=== PATIENT | male | born 1940 | race Caucasian/White ===

== ENCOUNTER 2017-11-19 18:20 | Inpatient (IN) | payer OTHER ==
[~2017-11-19] VITALS: Ht 177.8 cm; Wt 78.9 kg
[~2017-11-19 18:20] MED LIST: ASPI81TA25 PO; CEPH500C2 PO; CMD/25 PO; GLUC500C4 PO; LISI10TA PO; MELO15TA3 PO; METOPROLOL PO; MULTI VITAMINS PO; OXYC-292 PO; OXYC1TAB3 PO; SIMV80TA2 PO; TERAZOSIN PO; WARF-246 PO
[2017-11-19 21:45] VITALS: BP 119/63; PULSE 73; TEMP 37; O2SAT 99; Ht 177.8 cm; Wt 78.9 kg
[2017-11-19] MEDS ORDERED: PNEUMOCOCCAL ADMINISTRATION CHARGE ONE (22:00)
[2017-11-19] MEDS ORDERED: PNEUMOCOCCAL POLYSACCHARIDES 25 MCG/0.5 ML VIAL/SYR IM. ONE (22:00)
[2017-11-19] MEDS ORDERED: FURO-85 PO (22:12)
[2017-11-19] MEDS ORDERED: TAMS0.4C38 PO (22:13)
[2017-11-19] MEDS ORDERED: ASPI81TA28 PO (22:14)
[2017-11-19] MEDS ORDERED: POTA10CA28 PO (22:14)
[2017-11-19] MEDS ORDERED: MULT-513 PO (22:15)
[2017-11-19] MEDS ORDERED: LISI-729 PO (22:16)
[2017-11-19] MEDS ORDERED: METO50TA16 PO (22:18)
[2017-11-19] MEDS ORDERED: WARF2.5T8 PO (22:20)
[2017-11-19] MEDS ORDERED: WARF5TAB7 PO (22:20)
[2017-11-19] MEDS ORDERED: MONT1TAB5 PO (22:21)
[2017-11-19] MEDS ORDERED: CARB1TAB29 PO (22:23)
[2017-11-19] MEDS ORDERED: ONDANSETRON INJ 2 MG/ML 2 ML VIAL IV PRN (22:45)
[2017-11-19] MEDS ORDERED: HydrALAZINE HCL 20 MG/ML VIAL IV. PRN (22:45)
[2017-11-19 22:54] VITALS: BP 125/58; PULSE 73; TEMP 37.6; O2SAT 96
[2017-11-19] MEDS ORDERED: PIPERACILL/TAZOBAC IV 3.375 GM in DEXTROSE 5% 100ML 100 ML IV SCH (23:00)
[2017-11-19] MEDS ORDERED: PHYTONADIONE INJ 10 MG in SODIUM CHLORIDE 0.9% 50ML 50 ML IV STA (23:10)
[2017-11-19] MEDS ORDERED: METOPROLOL TARTRATE 25 MG TAB PO ONE (23:15)
[2017-11-19] MEDS ORDERED: FUROSEMIDE 20 MG TAB PO ONE (23:15)
[2017-11-19 23:24] VITALS: BP 115/75; PULSE 75
[2017-11-19] MEDS: SODIUM CHLORIDE 0.9% 1000ML 1,000 ML IV SCH (23:27)
[2017-11-19] MEDS: MoRPHine SULFATE 4 MG/ML 1 ML CARP\\VIAL IV PRN (23:27)
[2017-11-19 23:38] LABS: BASO % 0.1 %; BASO ABS # 0.01 K/uL (0-0.2); EOS % 0.5 %; EOS ABS # 0.07 K/uL (0-0.5); HEMATOCRIT 29.6 % (42-52); HEMOGLOBIN 9.9 g/dL (14.0-18.0); IG# 0.05 K/uL (0.00-0.02); LYMPH % 6.2 %; LYMPH ABS # 0.83 K/uL (1.2-3.4); MEAN CELL VOLUME 95.2 fL (80-100); MEAN CORPUSCULAR HEMOGLOBIN 31.8 pg (25-34); MEAN CORPUSCULAR HGB CONC 33.4 g/dl (32-36); MEAN PLATELET VOLUME 9.5 fL (7.4-10.4); MONO % 12.3 %; MONO ABS # 1.66 K/uL (0.11-0.59); NEUT % 80.5 %; NEUT ABS # 10.83 K/uL (1.4-6.5); PLATELET COUNT 177 K/uL (130-400); RED CELL DISTRIBUTION WIDTH CV 13.3 % (11.5-14.5); RED CELL DISTRIBUTION WIDTH SD 46.3 fL (36.4-46.3); WHITE BLOOD COUNT 13.45 K/uL (4.8-10.8)
[2017-11-19 23:45] VITALS: BP 115/55; PULSE 76; TEMP 37.5
[2017-11-19 23:46] LABS: INR 3.4 (0.9-1.1)
--- NOTE | 2017-11-19 23:59 | History and Physical ---
History & Physical Date & Time of Service: Nov 19, 2017 at 23:35 Chief Complaint: Uti, Colovessicle Fistula Primary Care Physician: No Doctor, Assigned History of Present Illness Source: patient, hospital records Patient is a 77 year old male with a past medical history of prostate cancer, hypertension, hyperlipidemia, Afib on Coumadin, and chronic pain that presents with as a transfer from [facility] with concerns of Colovesicular fistula. The patient was having dysuria for the past 2 days and was started on Cipro by his PCP yesterday for concerns over UTI. The patient then noticed dark brown flakes in his urine and went to the Emergency department for evaluation. Once in the ED the patient had an abdominal CT showing an irregular collection concerning for abscess between the sigmoid colon and bladder concerning for an abscess. This finding is actually similar to the finding on CT on 11/18/2016 although is slightly larger now. Also intraluminal gas and wall thickening associated with the urinary bladder was seen. The patient was started on IV levaquin and transferred to [facility]. The patient on admission is stable and not complaining of urinary or abdominal pain at this time, and denies any fevers, chills, chest pain, or shortness of breath. 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 Status: Chronic (6) Repair of tricuspid valve Status: Chronic Family History Noncontributory Social History Smoking Status: Former Smoker Smokeless Tobacco Use: No Alcohol Use: none Immunizations History of Influenza Vaccine: Yes Influenza Vaccine Date: Oct 04, 2012 History of Tetanus Vaccine?: Yes History of Pneumococcal: Yes Pneumococcal Date: Feb 03, 2013 History of Hepatitis B Vaccine: No Multi-Drug Resistant Organisms History of MDRO: No Allergies Coded Allergies: No Known Allergies (Unverified , 02/01/13) Home Medications Scheduled Aspirin (Aspir-Low), 1 TAB PO QAM Aspirin (Aspirin Ec), 81 MG PO DAILY Carbonyl Iron (Feosol), 65 MG PO HS Cephalexin Monohydrate (Keflex), 500 MG PO TID Furosemide (Lasix), 20 MG PO BID Glucosamine Sulfate (Glucosamine), 2 CAPSULES PO BID Lisinopril (Prinivil), 10 MG PO QAM Lisinopril (Zestril), 5 MG PO DAILY Meloxicam (Mobic), 15 MG PO QPM Metoprolol Tartrate (Lopressor) (Lopressor), 75 MG PO BID Montelukast Sodium (Montelukast Sodium), 10 MG PO DAILY Multivitamins/Minerals (Mvi With Minerals), 1 TAB PO DAILY Oxycodone Hcl (Oxycodone Hcl Er), 20 MG PO Q12 Potassium Chloride (Micro-K Ext Rel), 10 MEQ PO BID Simvastatin (Zocor), 80 MG PO QPM Tamsulosin Hcl (Flomax), 1 CAP PO DAILY Warfarin Sod (Coumadin), 2.5 MG PO 5XWK Warfarin Sod (Jantoven), 5 MG PO DAILY Warfarin Sod (Jantoven), 2.5 MG PO DAILY Warfarin Sodium (Warfarin Sodium), 5 MG PO 2XWK [Metoprolol], 75 MG PO BID [Multi Vitamins], 1 TAB PO QAM [Terazosin], 8 MG PO HS Scheduled PRN Oxycodone Ir (Roxicodone Ir), 5-10 MG PO Q4H PRN Review of Systems Constitutional: No fever, No chills, No fatigue Respiratory: No cough, No sputum, No wheezing, No shortness of breath Cardiovascular: No chest pain, No palpitations Abdomen: No pain, No nausea, No vomiting, No GI bleeding Genitourinary - Male: + dysuria, + problem reported (fecal contents in urine), No hematuria Neurologic: No numbness/tingling Physical Exam Vital Signs Date Time Temp Pulse Resp B/P (MAP) Pulse Ox O2 Delivery O2 Flow Rate FiO2 11/19/17 21:45 37.0 73 18 119/63 99 Room Air General Appearance: WD/WN, no apparent distress Head: normocephalic, atraumatic Eyes: normal inspection, sclerae normal Neck: supple, no carotid bruits Respiratory/Chest: chest non-tender, lungs clear, normal breath sounds Cardiovascular: no edema, no gallop, + irregularly irregular Abdomen/GI: normal bowel sounds, non tender, soft Back: normal inspection, no CVA tenderness Neurologic/Psych: alert, normal mood/affect, oriented x 3 Diagnostics Laboratory Results Results Past 24 Hours Test 11/19/17 22:37 11/19/17 23:16 Range/Units Microbiology Results 11/19/17 Blood Culture, Received Pending 11/19/17 Blood Culture, Received Pending 11/19/17 Urine Culture, Ordered Pending Impression Assessment and Plan Patient is a 77 year old male with a past medical history of prostate cancer, hypertension, hyperlipidemia, Afib on Coumadin, and chronic pain that presents with as a transfer from [facility] with concerns of Colovesicular fistula 1) Colovesicular Fistula - Admit to Med/Surg - NPO - 100mls/hr IV NS - Zosyn + Levaquin - Blood Cultures, Urine Culture, UA --> Patient did receive Levaquin at [place] - Urology Consult 2) Atrial Fibrillation - EKG ordered - Will get night dose of 75mg Metoprolol prior to being NPO - Heart rate stable at this time and will hold morning meds --> If not requiring surgery will resume PO Metoprolol or may require transfer to Telemetry for IV Lopressor - Currently supratherapeutic --> INR of 3.9 at [place] --> Repeat INR - 10mg Phytonadione --> Repeat INR in AM - Hold Coumadin at this time 3) Hypertension - Hold home Lisinopril - Hydralazine 10mg IV q4h PRN for SBP > 160 4) HLD - Hold home Zocor 5) CHF - Will get evening dose of Lasix then NPO after midnight so will hold Lasix + daily KlorCon 6) BPH - Hold home Flomax 7) Chronic Pain - Patient on significant home dose of narcotics --> Roxicodone 10/325 mg q4h - Morphine 4mg IV q4h PRN for pain 8) CAD - Holding home Aspirin 9) DVT - Supratherapeutic INR - Hold home Coumadin - In not going for surgery --> DO NOT USE LOVENOX --> Previous negative reaction --> IV Heparin 10) Code Status - Full Resuscitation Attending addendum: I have physically seen this patient, have supervised the medical residents activities, and agree with the H&P unless as otherwise noted. Assessment and Plan: Colovesical fistula-- Admitted to medical surgical floor Nothing by mouth except essential medications Normal saline at 100 mils per hour Zosyn 3.375 mg IV every 8 hours Levofloxacin 500 mg IV every 24 hours Follow blood cultures and urine culture Consult urology CAD/hypertension/atrial fibrillation/CHF-- Hold aspirin, Lasix, Klor-Con and lisinopril Hydralazine 10 mg IV every 4 hours when necessary systolic blood pressure greater than 160 Vitamin K 10 mg IV to reverse INR for possible procedure Hold Coumadin Dose metoprolol 75 mg by mouth tonight, and either resume in the a.m. or transfer to telemetry for IV Lopressor DVT on chronic Coumadin-- Hold Coumadin as noted above and reverse with vitamin K Level of Care Med/Surg Advanced Directives Existing Advance Directive: No Existing Living Will: No Existing Power of Technical Specialist Cytogenetics: Yes Resuscitation Status FULL RESUSCITATION VTE Prophylaxis VTE Risk Assessment Done? Y/N: Yes Risk Level: Moderate Given or contraindicated: Warfarin (Coumadin), SCD's Social Service Consult None Apply Resident Tracking Resident Involvement: Resident Care Provided Care Provided: Adult Hospital Medicine
[2017-11-20] VITALS (9 sets, daily range): BP systolic 107–144; BP diastolic 54–71; PULSE 71–88; TEMP 37–38; O2SAT 92–97
[2017-11-20 00:02] LABS: ALBUMIN 2.9 gm/dl (3.4-5.0); CALCIUM 8.2 mg/dl (8.5-10.1); CREATININE 1.42 mg/dl (0.60-1.40); POTASSIUM 4.3 mmol/L (3.5-5.1)
[2017-11-20 00:05] LABS: TOTAL PROTEIN 6.2 gm/dl (6.4-8.2)
[2017-11-20] MEDS ORDERED: PIPERACILL/TAZOBAC CONSULT ACTIVE PRN (00:15)
[2017-11-20] MEDS: PIPERACILL/TAZOBAC IV 3.375 GM in DEXTROSE 5% 100ML IV SCH ×3 (03:39→20:14)
[2017-11-20 08:35] LABS: BASO % 0.2 %; BASO ABS # 0.02 K/uL (0-0.2); EOS % 0.4 %; EOS ABS # 0.04 K/uL (0-0.5); HEMATOCRIT 31.8 % (42-52); HEMOGLOBIN 10.8 g/dL (14.0-18.0); IG# 0.03 K/uL (0.00-0.02); LYMPH % 5.6 %; LYMPH ABS # 0.62 K/uL (1.2-3.4); MEAN CELL VOLUME 95.5 fL (80-100); MEAN CORPUSCULAR HEMOGLOBIN 32.4 pg (25-34); MEAN PLATELET VOLUME 9.6 fL (7.4-10.4); MONO % 8.3 %; MONO ABS # 0.93 K/uL (0.11-0.59); NEUT % 85.2 %; PLATELET COUNT 176 K/uL (130-400); RED CELL DISTRIBUTION WIDTH CV 13.4 % (11.5-14.5); RED CELL DISTRIBUTION WIDTH SD 46.6 fL (36.4-46.3); WHITE BLOOD COUNT 11.14 K/uL (4.8-10.8)
[2017-11-20 08:41] LABS: INR 1.6 (0.9-1.1)
[2017-11-20 09:04] LABS: CALCIUM 8.7 mg/dl (8.5-10.1); CREATININE 1.51 mg/dl (0.60-1.40)
--- NOTE | 2017-11-20 09:20 | Clinical Documentation Query ---
QUERY 1 OF [address] GEORGE, In your clinical opinion is this patient being managed for: ( ) Chronic diastolic CHF ( ) Chronic systolic CHF ( ) Chronic systolic and diastolic CHF (x ) Not Agree: no mention of HF in any past records. Clinical Dx, not based on meds or EF ( ) Other explanation of clinical findings (Please Explain) ( ) Unable to determine (Please Define) ( ) Need to Discuss The medical record reflects the following clinical findings, treatment, and risk factors. Clinical Indicators: 77 yo male presenting with Colovesical fistula. Noted to have a history of CHF. Review of historical EHR revealed documentation in a cardiology consult January 2013 stating Nov 2012 showed EF 55%. Treatment: chronic medications include lasix, lisinopril, metoprolol Risk Factors: age, HTN, A fib QUERY 2 OF 3 In your clinical opinion is this patient being managed for: ( x ) Urinary tract infection ( ) Not Agree ( ) Other explanation of clinical findings (Please Explain) ( ) Unable to determine (Please Define) ( ) Need to Discuss The medical record reflects the following clinical findings, treatment, and risk factors. Clinical Indicators: WBC 13.45, UA LE large/WBC >30/bacteria +2 Treatment:IV levaquin, IV zosyn, IV fluids, UA cx pending, urology consult Risk Factors: colovesicular fistula QUERY 3 OF 3 In your clinical opinion is this patient being managed for: ( ) Acute kidney failure ( x ) Not Agree ( ) Other explanation of clinical findings (Please Explain) ( ) Unable to determine (Please Define) ( ) Need to Discuss The medical record reflects the following clinical findings, treatment, and risk factors. Clinical Indicators: Review of historical Cr showed baseline value of 1.2. Presented with Cr of 1.42 which has trended up to Cr 1.51. Treatment: IV fluids, monitor PRP's Risk Factors: age, A fib, CHD, A fib, colovesicular fistula Please clarify and document your clinical opinion in the progress notes and discharge summary. Terms such as "probable", "suspected", "likely", "questionable", "possible", or "still to be ruled out" are acceptable. IF IN AGREEMENT, YOU MUST DOCUMENT ABOVE DIAGNOSTIC STATEMENT IN DAILY PROGRESS NOTES AND DISCHARGE SUMMARY. This document is not part of the patient's record. Thank You, Gail Gonzalez, RN [phone]
--- NOTE | 2017-11-20 09:22 | Clinical Documentation Query ---
QUERY 1 OF [address] CONNOR, In your clinical opinion is this patient being managed for: (x ) Chronic diastolic CHF ( ) Chronic systolic CHF ( ) Chronic systolic and diastolic CHF ( ) Not Agree ( ) Other explanation of clinical findings (Please Explain) ( ) Unable to determine (Please Define) ( ) Need to Discuss The medical record reflects the following clinical findings, treatment, and risk factors. Clinical Indicators: 77 yo male presenting with Colovesical fistula. Noted to have a history of CHF. Review of historical EHR revealed documentation in a cardiology consult January 2013 stating Nov 2012 showed EF 55%. Treatment: chronic medications include lasix, lisinopril, metoprolol Risk Factors: age, HTN, A fib QUERY 2 OF 3 In your clinical opinion is this patient being managed for: ( x ) Urinary tract infection ( ) Not Agree ( ) Other explanation of clinical findings (Please Explain) ( ) Unable to determine (Please Define) ( ) Need to Discuss The medical record reflects the following clinical findings, treatment, and risk factors. Clinical Indicators: WBC 13.45, UA LE large/WBC >30/bacteria +2 Treatment:IV levaquin, IV zosyn, IV fluids, UA cx pending, urology consult Risk Factors: colovesicular fistula QUERY 3 OF 3 In your clinical opinion is this patient being managed for: (x ) Acute kidney failure ( ) Not Agree ( ) Other explanation of clinical findings (Please Explain) ( ) Unable to determine (Please Define) ( ) Need to Discuss The medical record reflects the following clinical findings, treatment, and risk factors. Clinical Indicators: Review of historical Cr showed baseline value of 1.2. Presented with Cr of 1.42 which has trended up to Cr 1.51. Treatment: IV fluids, monitor PRP's Risk Factors: age, A fib, CHD, A fib, colovesicular fistula Please clarify and document your clinical opinion in the progress notes and discharge summary. Terms such as "probable", "suspected", "likely", "questionable", "possible", or "still to be ruled out" are acceptable. IF IN AGREEMENT, YOU MUST DOCUMENT ABOVE DIAGNOSTIC STATEMENT IN DAILY PROGRESS NOTES AND DISCHARGE SUMMARY. This document is not part of the patient's record. Thank You, Gail Gonzalez RN [phone]
[2017-11-20] MEDS: SODIUM CHLORIDE 0.9% 1000ML 1,000 ML IV SCH ×2 (09:39→19:12)
[2017-11-20] MEDS: MoRPHine SULFATE 4 MG/ML 1 ML CARP\\VIAL IV PRN (09:39)
[2017-11-20] MEDS: HEPARIN 25,000 UNIT/500ML D5W 500 ML IV PRN ×4 (11:12→23:05)
--- NOTE | 2017-11-20 11:34 | Urology Consultation ---
History General Date of Service: Nov 20, 2017. Chief Complaint: colovestical fistula Primary Care Physician: Ayden Mcmullen M.D. Pt seen a urologist before?: Yes (Dr. Prieto) If yes, why?: prostate cancer History of Present Illness 77 yo transfer from [facility] for colovesical fistula. consulted to assist in this pt's care. The pt has a hx of prostate cancer for which he has seen Dr. Prieto last year. No current tx. Pa 6+6. Pt reports developing stool and air in the urine several days ago. Denies abdominal pain. CT scan from [facility] showing ? abscess vs inflammed sigmoid with colovesical fistula. Urine is clear, yellow in urinal this morning. Imaging Imaging: CT ([facility] ) Laboratory Last 24 Hours Test 11/19/17 23:16 11/19/17 23:30 11/20/17 08:23 11/20/17 10:23 White Blood Count 13.45 K/uL 11.14 K/uL Red Blood Count 3.11 M/uL 3.33 M/uL Hemoglobin 9.9 g/dL 10.8 g/dL Hematocrit 29.6 % 31.8 % Mean Corpuscular Volume 95.2 fL 95.5 fL Mean Corpuscular Hemoglobin 31.8 pg 32.4 pg Mean Corpuscular Hemoglobin Concent 33.4 g/dl 34.0 g/dl Platelet Count 177 K/uL 176 K/uL Mean Platelet Volume 9.5 fL 9.6 fL Neutrophils (%) (Auto) 80.5 % 85.2 % Lymphocytes (%) (Auto) 6.2 % 5.6 % Monocytes (%) (Auto) 12.3 % 8.3 % Eosinophils (%) (Auto) 0.5 % 0.4 % Basophils (%) (Auto) 0.1 % 0.2 % Neutrophils # (Auto) 10.83 K/uL 9.50 K/uL Lymphocytes # (Auto) 0.83 K/uL 0.62 K/uL Monocytes # (Auto) 1.66 K/uL 0.93 K/uL Eosinophils # (Auto) 0.07 K/uL 0.04 K/uL Basophils # (Auto) 0.01 K/uL 0.02 K/uL RDW Standard Deviation 46.3 fL 46.6 fL RDW Coefficient of Variation 13.3 % 13.4 % Immature Granulocyte % (Auto) 0.4 % 0.3 % Immature Granulocyte # (Auto) 0.05 K/uL 0.03 K/uL Prothrombin Time 35.0 SECONDS 16.3 SECONDS Prothromb Time International Ratio 3.4 1.6 Sodium Level 136 mmol/L 139 mmol/L Potassium Level 4.3 mmol/L 4.0 mmol/L Chloride Level 106 mmol/L 107 mmol/L Carbon Dioxide Level 25 mmol/L 23 mmol/L Anion Gap 5.0 mmol/L 9.0 mmol/L Blood Urea Nitrogen 27 mg/dl 25 mg/dl Creatinine 1.42 mg/dl 1.51 mg/dl Est Creatinine Clear Calc Drug Dose 43.6 ml/min 41.0 ml/min Estimated GFR () 54.1 50.2 Estimated GFR (Non- 46.6 43.3 BUN/Creatinine Ratio 19.3 16.4 Random Glucose 120 mg/dl 115 mg/dl Calcium Level 8.2 mg/dl 8.7 mg/dl Total Bilirubin 0.9 mg/dl Aspartate Amino Transf (AST/SGOT) 15 U/L Alanine Aminotransferase (ALT/SGPT) 24 U/L Alkaline Phosphatase 97 U/L Total Protein 6.2 gm/dl Albumin 2.9 gm/dl Globulin 3.3 gm/dl Albumin/Globulin Ratio 0.9 Urine Color YELLOW Urine Appearance TURBID Urine pH 6.0 Urine Specific [place] 1.025 Urine Protein 2+ Urine Glucose (UA) NEG Urine Ketones NEG Urine Occult Blood 3+ Urine Nitrite NEG Urine Bilirubin NEG Urine Urobilinogen NEG Urine Leukocyte Esterase LARGE Urine RBC 5-10 /hpf Urine WBC >30 /hpf Urine Epithelial Cells 0-5 /lpf Urine Bacteria 2+ Activated Partial Thromboplast Time 40.0 SECONDS Partial Thromboplastin Ratio 1.5 Past History A Fib, diverticulosis, hypertension Past Surgical History: pacemaker, other (mitral valve prosthesis implantation, repair of tricuspid valve) Family History non-contributory Social History Hx Tobacco Use In Past Year?: No (NO SMOKING IN YEARS) Smoking: other (former smoker) Immunizations History of Influenza Vaccine: Yes Influenza Vaccine Date: Oct 04, 2012 History of Tetanus Vaccine?: Yes History of Pneumococcal: Yes Pneumococcal Date: Feb 03, 2013 History of Hepatitis B Vaccine: No Allergies Coded Allergies: No Known Allergies (Unverified , 02/01/13) Medications Home Medications: Home Meds and Scripts Medications Dose Route/Sig Max Daily Dose Days Date Category Dose Instructions Feosol (Carbonyl Iron) 45 Mg Tab 65 Mg PO HS 11/19/17 Reported Montelukast Sodium 10 Mg Tab 10 Mg PO DAILY 30 11/19/17 Reported Jantoven (Warfarin Sodium) 2.5 Mg Tab 2.5 Mg PO DAILY 11/19/17 Reported Jantoven (Warfarin Sodium) 5 Mg Tab 5 Mg PO DAILY 11/19/17 Reported Lopressor (Metoprolol Tartrate) 50 Mg Tab 75 Mg PO BID 11/19/17 Reported Zestril (Lisinopril) 5 Mg Tab 5 Mg PO DAILY 11/19/17 Reported Mvi With Minerals (Multivitamins/Minerals) Tab 1 Tab PO DAILY 11/19/17 Reported Aspirin Ec (Aspirin) 81 Mg Tab 81 Mg PO DAILY 11/19/17 Reported Micro-K Ext Rel (Potassium Chloride) 10 Meq Capcr 10 Meq PO BID 11/19/17 Reported Flomax (Tamsulosin Hcl) 0.4 Mg Cap 1 Cap PO DAILY 30 11/19/17 Reported Lasix (Furosemide) 20 Mg Tab 20 Mg PO BID 11/19/17 Reported Keflex (Cephalexin Monohydrate) 500 Mg Cap 500 Mg PO TID 02/05/13 Rx Roxicodone Ir (Oxycodone HCl) 5 Mg Tab 5-10 Mg PO Q4H PRN 02/05/13 Rx Oxycodone Hcl Er (Oxycodone Hcl) 10 Mg Tab 20 Mg PO Q12 02/05/13 Rx Warfarin Sodium 5 Mg Tab 5 Mg PO 2XWK 01/06/13 Reported ON MONDAYS AND FRIDAYS Coumadin (Warfarin Sod) 2.5 Mg Tab 2.5 Mg PO 5XWK 01/06/13 Reported EVERY DAY EXCEPT THURSDAY AND THURSDAY [Multi Vitamins] 1 Tab PO QAM 01/06/13 Reported [Terazosin] 8 Mg PO HS 01/06/13 Reported Zocor (Simvastatin) 80 Mg Tab 80 Mg PO QPM 01/06/13 Reported Mobic (Meloxicam) 15 Mg Tab 15 Mg PO QPM 01/06/13 Reported [Metoprolol] 75 Mg PO BID 01/06/13 Reported Prinivil (Lisinopril) 10 Mg Tab 10 Mg PO QAM 01/06/13 Reported Glucosamine (Glucosamine Sulfate) 500 Mg Cap 2 Capsules PO BID 01/06/13 Reported Aspir-Low (Aspirin) 81 Mg Tab 1 Tab PO QAM 01/06/13 Reported Inpatient Medications: Current Inpatient Medications Medications (Trade) Dose Ordered Sig/Quan Route Start Time Stop Time Status Last Admin Dose Admin Levofloxacin 750 mg/Prmx 150 ml @ 100 mls/hr Q24H IV 11/20/17 14:00 11/28/17 15:29 Sodium Chloride 1,000 ml @ 100 mls/hr Q10H IV 11/19/17 22:45 12/19/17 22:44 11/20/17 09:39 100 MLS/HR Ondansetron HCl (Zofran Inj) 4 mg Q6H PRN IV 11/19/17 22:45 12/19/17 22:44 Morphine Sulfate (MoRPHine SULFATE INJ) 4 mg Q4H PRN IV 11/19/17 22:45 12/03/17 22:44 11/20/17 09:39 4 MG Hydralazine HCl (HydrALAZINE INJ) 10 mg Q4H PRN IV. 11/19/17 22:45 12/19/17 22:44 Piperacillin Sod/ Tazobactam Sod 3.375 gm/Dextrose 115 ml @ 28.75 mls/ hr Q8H IV 11/20/17 04:00 11/30/17 03:59 11/20/17 03:39 28.75 MLS/HR Piperacillin Sod/ Tazobactam Sod (Consult) 1 ea UD PRN N/A 11/20/17 00:15 12/20/17 00:14 Warfarin Sodium (Coumadin Tab) 2.5 mg SuTuWeThSa@1600 PO 11/21/17 16:00 12/21/17 15:59 Warfarin Sodium (Coumadin Tab) 5 mg MoFr@1600 PO 11/20/17 16:00 12/20/17 15:59 Heparin Sodium/ Dextrose 500 ml @ 27 mls/hr [id number] PRN IV 11/20/17 10:30 12/20/17 10:29 11/20/17 11:12 27 MLS/HR Review of Systems Review of Systems Constitutional: No fever, No chills Eyes: No double vision Neurological: No dizzy Endocrine: No excessive thirst Gastrointestinal: No abdominal pain, No nausea, No vomiting Cardiovascular: No chest pain Respiratory: No shortness of breath Male : No painful urination, No blood in urine Physical Exam Vital Signs: Vital Signs Past 12 Hours Date Time Temp Pulse Resp B/P (MAP) Pulse Ox O2 Delivery O2 Flow Rate FiO2 11/20/17 07:40 37.7 72 16 144/71 (95) 95 Room Air 11/20/17 07:20 Room Air 11/20/17 01:50 37.0 71 16 128/61 (83) 97 Room Air 11/20/17 01:20 37.4 73 16 113/61 (78) 94 Room Air 11/20/17 01:05 37.2 73 16 107/58 (74) 94 Room Air 11/20/17 00:49 37.2 72 18 107/54 (71) 93 Room Air 11/19/17 23:45 37.5 76 115/55 (75) 11/19/17 23:24 75 115/75 (88) 11/19/17 23:24 Room Air Physical Exam: General Appearance: no apparent distress Eyes: bilateral eyes normal inspection ENT: hearing grossly normal Neck: no JVD Respiratory/Chest: no respiratory distress, no accessory muscle use Cardiovascular: no JVD Extremities: normal inspection Neurologic/Psychiatric: alert, normal mood/affect, oriented x 3 Skin: normal color Assessment & Plan Assessment & Plan A/P: Colovesical fistula AFVSS. CT reviewed with Dr. Metzger this morning. Will consult general surgery for further evaluation. Will likely need surgery in the future when the area is less inflammed. Role for small. Would be available for repair of bladder during surgery if needed. Will check a PSA given his hx of prostate cancer. Will arrange for outpatient f/ u with Dr. Prieto as well. Thanks for the consult. Will continue to follow along with primary service. The pt was seen and assessed with Dr. Metzger this morning.
[2017-11-20] MEDS ORDERED: NURSING VERBAL MED ORDER ONE (12:00)
--- NOTE | 2017-11-20 13:21 | Surgery Consultation ---
Consultation Date of Consultation: Nov 20, 2017. Attending Physician: Antonia Eastman M.D. Past Medical/Surgical History Patient is a 77 year old male with a past medical history of prostate cancer, hypertension, hyperlipidemia, Afib on Coumadin, and chronic pain that presents with as a transfer from [facility] with concerns of Colovesicular fistula. The patient was having dysuria for the past 2 days and was started on Cipro by his PCP yesterday for concerns over UTI. The patient then noticed dark brown flakes in his urine and went to the Emergency department for evaluation. Once in the ED the patient had an abdominal CT showing an irregular collection concerning for abscess between the sigmoid colon and bladder concerning for an abscess. This finding is actually similar to the finding on CT on 11/18/2016 although is slightly larger now. Also intraluminal gas and wall thickening associated with the urinary bladder was seen. The patient was started on IV levaquin and transferred to [facility]. The patient on admission is stable and not complaining of urinary or abdominal pain at this time, and denies any fevers, chills, chest pain, or shortness of breath. I reviewed pt's H/P with pt and his , pt denies abdominal pain, no fever, no diarrhea, pt had sigmoid colon diverticulitis with large abscess last year , pt was treated with IV antibiotic, the abscess was gone after 1 week treatment, Social History Smoking Status: Former Smoker Smokeless Tobacco Use: No Alcohol Use: occasionally Drug Use: none Allergies Coded Allergies: No Known Allergies (Unverified , 02/01/13) Home Medications Scheduled Aspirin (Aspir-Low), 1 TAB PO QAM Aspirin (Aspirin Ec), 81 MG PO DAILY Carbonyl Iron (Feosol), 65 MG PO HS Cephalexin Monohydrate (Keflex), 500 MG PO TID Furosemide (Lasix), 20 MG PO BID Glucosamine Sulfate (Glucosamine), 2 CAPSULES PO BID Lisinopril (Prinivil), 10 MG PO QAM Lisinopril (Zestril), 5 MG PO DAILY Meloxicam (Mobic), 15 MG PO QPM Metoprolol Tartrate (Lopressor) (Lopressor), 75 MG PO BID Montelukast Sodium (Montelukast Sodium), 10 MG PO DAILY Multivitamins/Minerals (Mvi With Minerals), 1 TAB PO DAILY Oxycodone Hcl (Oxycodone Hcl Er), 20 MG PO Q12 Potassium Chloride (Micro-K Ext Rel), 10 MEQ PO BID Simvastatin (Zocor), 80 MG PO QPM Tamsulosin Hcl (Flomax), 1 CAP PO DAILY Warfarin Sod (Coumadin), 2.5 MG PO 5XWK Warfarin Sod (Jantoven), 5 MG PO DAILY Warfarin Sod (Jantoven), 2.5 MG PO DAILY Warfarin Sodium (Warfarin Sodium), 5 MG PO 2XWK [Metoprolol], 75 MG PO BID [Multi Vitamins], 1 TAB PO QAM [Terazosin], 8 MG PO HS Scheduled PRN Oxycodone Ir (Roxicodone Ir), 5-10 MG PO Q4H PRN Current Inpatient Medications Current Inpatient Medications Medications (Trade) Dose Ordered Sig/Quan Route Start Time Stop Time Status Last Admin Dose Admin Levofloxacin 750 mg/Prmx 150 ml @ 100 mls/hr Q24H IV 11/20/17 14:00 11/28/17 15:29 Sodium Chloride 1,000 ml @ 100 mls/hr Q10H IV 11/19/17 22:45 12/19/17 22:44 11/20/17 09:39 100 MLS/HR Ondansetron HCl (Zofran Inj) 4 mg Q6H PRN IV 11/19/17 22:45 12/19/17 22:44 Morphine Sulfate (MoRPHine SULFATE INJ) 4 mg Q4H PRN IV 11/19/17 22:45 12/03/17 22:44 11/20/17 09:39 4 MG Hydralazine HCl (HydrALAZINE INJ) 10 mg Q4H PRN IV. 11/19/17 22:45 12/19/17 22:44 Piperacillin Sod/ Tazobactam Sod 3.375 gm/Dextrose 115 ml @ 28.75 mls/ hr Q8H IV 11/20/17 04:00 11/30/17 03:59 11/20/17 12:51 28.75 MLS/HR Piperacillin Sod/ Tazobactam Sod (Consult) 1 ea UD PRN N/A 11/20/17 00:15 12/20/17 00:14 Warfarin Sodium (Coumadin Tab) 2.5 mg SuTuWeThSa@1600 PO 11/21/17 16:00 12/21/17 15:59 Future Hold Warfarin Sodium (Coumadin Tab) 5 mg MoFr@1600 PO 11/20/17 16:00 12/20/17 15:59 Future Hold Heparin Sodium/ Dextrose 500 ml @ 27 mls/hr [id number] PRN IV 11/20/17 10:30 12/20/17 10:29 11/20/17 11:12 27 MLS/HR Review of Systems Constitutional: No fever, No chills, No sweats, No weight loss, No weakness, No fatigue, No problem reported Eyes: No worsening of vision, No eye pain, No redness, No discharge, No diplopia, No problem reported ENT: No hearing loss, No unusual epistaxis, No nasal symptoms, No sore throat, No tinnitus, No dental problems, No trouble swallowing, No problem reported Respiratory: No cough, No sputum, No wheezing, No shortness of breath, No dyspnea on exertion, No dyspnea at rest, No hemoptysis, No problem reported Cardiovascular: + problem reported (MVR x2 with mechnical valve, pacemaker, A- fib), No chest pain, No orthopnea, No PND, No edema, No claudication, No palpitations Abdomen: + pain Musculoskeletal: No joint pain, No muscle pain, No swelling, No calf pain, No problem reported Genitourinary - Male: + problem reported (prostate cancer last year ) Neurologic: No memory loss, No paralysis, No weakness, No numbness/tingling, No vertigo, No balance problems, No problem reported Psychiatric: No depression symptoms, No anhedonism, No anxiety, No insomnia, No substance abuse, No problem reported Endocrine: No fatigue, No excessive thirst, No excessive urination, No problem reported Allergic / Immunologic: No environmental allergies, No seasonal allergies, No pet sensitivities, No food allergies, No hives, No frequent infections, No poor healing, No prolonged convalescence, No problem reported Physical Exam Date Time Temp Pulse Resp B/P (MAP) Pulse Ox O2 Delivery O2 Flow Rate FiO2 11/20/17 07:40 37.7 72 16 144/71 (95) 95 Room Air 11/20/17 07:20 Room Air 11/20/17 01:50 37.0 71 16 128/61 (83) 97 Room Air 11/20/17 01:20 37.4 73 16 113/61 (78) 94 Room Air 11/20/17 01:05 37.2 73 16 107/58 (74) 94 Room Air 11/20/17 00:49 37.2 72 18 107/54 (71) 93 Room Air 11/19/17 23:45 37.5 76 115/55 (75) 11/19/17 23:24 75 115/75 (88) 11/19/17 23:24 Room Air 11/19/17 22:54 37.6 73 16 125/58 (80) 96 Room Air 11/19/17 21:45 37.0 73 18 119/63 99 Room Air 11/19/17 21:30 Room Air General Appearance: WD/WN, no apparent distress Head: normocephalic Eyes: normal inspection ENT: normal ENT inspection Neck: supple, no JVD Respiratory/Chest: chest non-tender, lungs clear, normal breath sounds, no respiratory distress Cardiovascular: regular rate, rhythm, no edema, no gallop, no JVD, no murmur Abdomen/GI: normal bowel sounds, non tender, soft, no organomegaly, no pulsatile mass, normal rectal exam Genitourinary - Male: normal male genitalia Extremities/Musculoskelatal: normal inspection, no calf tenderness, normal capillary refill Neurologic/Psych: no motor/sensory deficits, alert, normal mood/affect Skin: normal color, warm/dry, no rash Laboratory Results Last 24 Hours Test 11/19/17 23:16 11/19/17 23:30 11/20/17 08:23 11/20/17 10:23 White Blood Count 13.45 K/uL 11.14 K/uL Red Blood Count 3.11 M/uL 3.33 M/uL Hemoglobin 9.9 g/dL 10.8 g/dL Hematocrit 29.6 % 31.8 % Mean Corpuscular Volume 95.2 fL 95.5 fL Mean Corpuscular Hemoglobin 31.8 pg 32.4 pg Mean Corpuscular Hemoglobin Concent 33.4 g/dl 34.0 g/dl Platelet Count 177 K/uL 176 K/uL Mean Platelet Volume 9.5 fL 9.6 fL Neutrophils (%) (Auto) 80.5 % 85.2 % Lymphocytes (%) (Auto) 6.2 % 5.6 % Monocytes (%) (Auto) 12.3 % 8.3 % Eosinophils (%) (Auto) 0.5 % 0.4 % Basophils (%) (Auto) 0.1 % 0.2 % Neutrophils # (Auto) 10.83 K/uL 9.50 K/uL Lymphocytes # (Auto) 0.83 K/uL 0.62 K/uL Monocytes # (Auto) 1.66 K/uL 0.93 K/uL Eosinophils # (Auto) 0.07 K/uL 0.04 K/uL Basophils # (Auto) 0.01 K/uL 0.02 K/uL RDW Standard Deviation 46.3 fL 46.6 fL RDW Coefficient of Variation 13.3 % 13.4 % Immature Granulocyte % (Auto) 0.4 % 0.3 % Immature Granulocyte # (Auto) 0.05 K/uL 0.03 K/uL Prothrombin Time 35.0 SECONDS 16.3 SECONDS Prothromb Time International Ratio 3.4 1.6 Sodium Level 136 mmol/L 139 mmol/L Potassium Level 4.3 mmol/L 4.0 mmol/L Chloride Level 106 mmol/L 107 mmol/L Carbon Dioxide Level 25 mmol/L 23 mmol/L Anion Gap 5.0 mmol/L 9.0 mmol/L Blood Urea Nitrogen 27 mg/dl 25 mg/dl Creatinine 1.42 mg/dl 1.51 mg/dl Est Creatinine Clear Calc Drug Dose 43.6 ml/min 41.0 ml/min Estimated GFR () 54.1 50.2 Estimated GFR (Non- 46.6 43.3 BUN/Creatinine Ratio 19.3 16.4 Random Glucose 120 mg/dl 115 mg/dl Calcium Level 8.2 mg/dl 8.7 mg/dl Total Bilirubin 0.9 mg/dl Aspartate Amino Transf (AST/SGOT) 15 U/L Alanine Aminotransferase (ALT/SGPT) 24 U/L Alkaline Phosphatase 97 U/L Total Protein 6.2 gm/dl Albumin 2.9 gm/dl Globulin 3.3 gm/dl Albumin/Globulin Ratio 0.9 Urine Color YELLOW Urine Appearance TURBID Urine pH 6.0 Urine Specific [place] 1.025 Urine Protein 2+ Urine Glucose (UA) NEG Urine Ketones NEG Urine Occult Blood 3+ Urine Nitrite NEG Urine Bilirubin NEG Urine Urobilinogen NEG Urine Leukocyte Esterase LARGE Urine RBC 5-10 /hpf Urine WBC >30 /hpf Urine Epithelial Cells 0-5 /lpf Urine Bacteria 2+ Activated Partial Thromboplast Time 40.0 SECONDS Partial Thromboplastin Ratio 1.5 Test 11/20/17 11:17 Prostate Specific Antigen 27.600 ng/ml Assessment & Plan Patient is a 77 year old male with a past medical history of prostate cancer, hypertension, hyperlipidemia, Afib on Coumadin, and chronic pain that presents with as a transfer from [facility] with concerns of Colovesicular fistula, CT scan reviewed IMP: Colovesicular fistula plan: I agree with IV antibiotic, possible I will do exp lap, sigmoid colectomy , possible colostomy, repair bladder fistula by urologist next week or do elective procedure, D/W benefits, risks and alternatives of the procedure, pt and his understood, they agree with the plan, 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 repeat labs in AM, pt can have clear diet now, will F/U thanks,
[2017-11-20] MEDS ORDERED: OXYCODONE HCL IR 5 MG TAB (IMMEDIATE RELEASE) PO PRN (13:45)
[2017-11-20] MEDS ORDERED: LEVOFLOXACIN / D5W 750 MG in PREMIXED IN D5W 150 ML IV SCH (14:00)
--- NOTE | 2017-11-20 14:48 | Family Medicine Progress Note ---
Progress Note Date of Service Nov 20, 2017. Subjective Pt evaluation today including: conversation w/ patient, physical exam, chart review, lab review, review of inpatient medication list Pain: Patient reports chronic pain, severe PO Intake: Clear liquids for possible surgery tomorrow Voiding: no voiding problems Patient is concerned about potential procedure. Reports chronic pain and burning on urination, is otherwise feeling well. Constitutional: + problem reported (chronic generalized pain), No fever, No chills, No sweats, No weight loss, No weakness, No fatigue Respiratory: No cough, No sputum, No wheezing, No shortness of breath, No dyspnea on exertion, No dyspnea at rest, No hemoptysis, No problem reported Cardiovascular: No chest pain, No orthopnea, No PND, No edema, No claudication, No palpitations, No problem reported Abdomen: No pain, No nausea, No vomiting, No diarrhea, No constipation, No GI bleeding, No problem reported Male : + dysuria, + problem reported ("brown flecks" in urine ) All Other Systems: Reviewed and Negative Medications Current Inpatient Medications Medications (Trade) Dose Ordered Sig/Quan Route Start Time Stop Time Status Last Admin Dose Admin Levofloxacin 750 mg/Prmx 150 ml @ 100 mls/hr Q24H IV 11/20/17 14:00 11/28/17 15:29 Sodium Chloride 1,000 ml @ 100 mls/hr Q10H IV 11/19/17 22:45 12/19/17 22:44 11/19/17 23:27 100 MLS/HR Ondansetron HCl (Zofran Inj) 4 mg Q6H PRN IV 11/19/17 22:45 12/19/17 22:44 Morphine Sulfate (MoRPHine SULFATE INJ) 4 mg Q4H PRN IV 11/19/17 22:45 12/03/17 22:44 11/19/17 23:27 4 MG Hydralazine HCl (HydrALAZINE INJ) 10 mg Q4H PRN IV. 11/19/17 22:45 12/19/17 22:44 Piperacillin Sod/ Tazobactam Sod 3.375 gm/Dextrose 115 ml @ 28.75 mls/ hr Q8H IV 11/20/17 04:00 11/30/17 03:59 11/20/17 03:39 28.75 MLS/HR Piperacillin Sod/ Tazobactam Sod (Consult) 1 ea UD PRN N/A 11/20/17 00:15 12/20/17 00:14 Objective Vital Signs Date Time Temp Pulse Resp B/P (MAP) Pulse Ox O2 Delivery O2 Flow Rate FiO2 11/20/17 01:50 37.0 71 16 128/61 (83) 97 Room Air 11/20/17 01:20 37.4 73 16 113/61 (78) 94 Room Air 11/20/17 01:05 37.2 73 16 107/58 (74) 94 Room Air 11/20/17 00:49 37.2 72 18 107/54 (71) 93 Room Air 11/19/17 23:45 37.5 76 115/55 (75) 11/19/17 23:24 75 115/75 (88) 11/19/17 23:24 Room Air 11/19/17 22:54 37.6 73 16 125/58 (80) 96 Room Air 11/19/17 21:45 37.0 73 18 119/63 99 Room Air 11/19/17 21:30 Room Air Physical Exam General Appearance: WD/WN, no apparent distress Eyes: normal inspection, PERRL, EOMI ENT: hearing grossly normal, pharynx normal Neck: supple, no adenopathy, no JVD, no carotid bruits, trachea midline Respiratory/Chest: chest non-tender, lungs clear, normal breath sounds, no respiratory distress, no accessory muscle use Cardiovascular: no edema, no gallop, no JVD, + diastolic murmur, + irregularly irregular Abdomen: normal bowel sounds, non tender, soft, no organomegaly, no pulsatile mass Extremities: normal range of motion, non-tender, normal inspection, no pedal edema, no calf tenderness Neurologic/Psychiatric: 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 II-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 nml as tested, no motor/sensory deficits, alert, normal mood/affect, oriented x 3 Skin: normal color, warm/dry, no rash Laboratory Results 11/20/17 08:23 Red Blood Count 3.33, Mean Corpuscular Volume 95.5, Mean Corpuscular Hemoglobin 32.4, Mean Corpuscular Hemoglobin Concent 34.0, Mean Platelet Volume 9.6, Neutrophils (%) (Auto) 85.2, Lymphocytes (%) (Auto) 5.6, Monocytes (%) (Auto) 8.3, Eosinophils (%) (Auto) 0.4, Basophils (%) (Auto) 0.2, Neutrophils # (Auto) 9.50, Lymphocytes # (Auto) 0.62, Monocytes # (Auto) 0.93, Eosinophils # (Auto) 0.04, Basophils # (Auto) 0.02 11/20/17 08:23 Test 11/19/17 23:16 11/19/17 23:30 11/20/17 08:23 11/20/17 10:23 Total Bilirubin 0.9 mg/dl (0.2-1) Aspartate Amino Transf (AST/SGOT) 15 U/L (15-37) Alanine Aminotransferase (ALT/SGPT) 24 U/L (12-78) Alkaline Phosphatase 97 U/L (45-117) Total Protein 6.2 gm/dl (6.4-8.2) Albumin 2.9 gm/dl (3.4-5.0) Globulin 3.3 gm/dl (2.5-4.0) Albumin/Globulin Ratio 0.9 (0.9-2) Urine Color YELLOW Urine Appearance TURBID (CLEAR) Urine pH 6.0 (4.5-7.5) Urine Specific [place] 1.025 (1.000-1.030) Urine Protein 2+ (NEG) Urine Glucose (UA) NEG (NEG) Urine Ketones NEG (NEG) Urine Occult Blood 3+ (NEG) Urine Nitrite NEG (NEG) Urine Bilirubin NEG (NEG) Urine Urobilinogen NEG (NEG) Urine Leukocyte Esterase LARGE (NEG) Urine RBC 5-10 /hpf (0-4) Urine WBC >30 /hpf (0-5) Urine Epithelial Cells 0-5 /lpf (0-5) Urine Bacteria 2+ (NEG) White Blood Count 11.14 K/uL (4.8-10.8) Red Blood Count 3.33 M/uL (4.7-6.1) Hemoglobin 10.8 g/dL (14.0-18.0) Hematocrit 31.8 % (42-52) Mean Corpuscular Volume 95.5 fL (80-100) Mean Corpuscular Hemoglobin 32.4 pg (25-34) Mean Corpuscular Hemoglobin Concent 34.0 g/dl (32-36) Platelet Count 176 K/uL (130-400) Mean Platelet Volume 9.6 fL (7.4-10.4) Neutrophils (%) (Auto) 85.2 % Lymphocytes (%) (Auto) 5.6 % Monocytes (%) (Auto) 8.3 % Eosinophils (%) (Auto) 0.4 % Basophils (%) (Auto) 0.2 % Neutrophils # (Auto) 9.50 K/uL (1.4-6.5) Lymphocytes # (Auto) 0.62 K/uL (1.2-3.4) Monocytes # (Auto) 0.93 K/uL (0.11-0.59) Eosinophils # (Auto) 0.04 K/uL (0-0.5) Basophils # (Auto) 0.02 K/uL (0-0.2) RDW Standard Deviation 46.6 fL (36.4-46.3) RDW Coefficient of Variation 13.4 % (11.5-14.5) Immature Granulocyte % (Auto) 0.3 % Immature Granulocyte # (Auto) 0.03 K/uL (0.00-0.02) Prothrombin Time 16.3 SECONDS (9.0-12.0) Prothromb Time International Ratio 1.6 (0.9-1.1) Anion Gap 9.0 mmol/L (3-11) Est Creatinine Clear Calc Drug Dose 41.0 ml/min Estimated GFR () 50.2 Estimated GFR (Non- 43.3 BUN/Creatinine Ratio 16.4 (10-20) Calcium Level 8.7 mg/dl (8.5-10.1) Activated Partial Thromboplast Time 40.0 SECONDS (21.0-31.0) Partial Thromboplastin Ratio 1.5 Test 11/20/17 11:17 Prostate Specific Antigen 27.600 ng/ml (0.000-4.000) Assessment and Plan Patient is a 77 year old male with a past medical history of prostate cancer, hypertension, hyperlipidemia, Afib on Coumadin, mechanical mitral valve, pacemaker, and chronic pain that presents as a transfer from [facility] with concerns of Colovesicular fistula Colovesicular Fistula, in setting of Prostate cancer Pa 3+3 - IVF 100mls/hr IV NS - Zosyn for GI/ source of infection - Urology Consulted, appreciate recs: consult general surgery for further evaluation. Will likely need surgery in the future when the area is less inflamed. Role for small. Would be available for repair of bladder during surgery if needed. PSA 27. Will arrange for outpatient f/u with Dr. Prieto. 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 repeat labs in AM, pt can have clear diet now Bacteremia, gram neg likely urinary source - sec to colovesicular fistula Probable UTI - IV Zosyn, day 1 - Blood Cultures growing gram neg bacilli, Urine Culture pending. - UA shows 2+ protein, blood, leukocytes, RBCs, WBCs, and bacteria. Likely related to contained GI fistula. JESSICA - IV hydration. follow bmp paroxysmal Atrial Fibrillation - EKG ordered - Metoprolol 50 BID considering current BP reading - Heart rate stable at this time and will hold morning meds --> If not requiring surgery will resume PO Metoprolol or may require transfer to Telemetry for IV Lopressor - INR of 3.9 at [place] --> Repeat INR 1.6,1.5 as warfarin was held. - Considering mechanical valve, INR of 2.5-3.5 is acceptable. - 10mg Phytonadione given on admission Chronic diastolic chf - Lasix on hold Hypertension - Hold home Lisinopril - Hydralazine 10mg IV q4h PRN for SBP > 160 HLD - Resume Zocor BPH - Resume Flomax Chronic Pain 2/2 arthritis - Patient on significant home dose of narcotics - Roxicodone 10/325 mg q4h and oxy ER 20 q12 DVTP: IV Heparin, coumadin If not going for surgery --> DO NOT USE LOVENOX -- > Previous negative reaction --> IV Heparin Code: Full Dispo: med/surg Resident Tracking Resident Involvement: Resident Care Provided Care Provided: Adult Hospital Medicine Reviewed: Pt Seen/Exam by Me History urine clear this am. Constitutional: denies: fever Respiratory: negative: short of breath Cardiovascular: denies chest pain General Appearance: no apparent distress (sitting in chair) Respiratory: lungs clear, no respiratory distress Cardiovascular: regular rate, rhythm Gastrointestinal: normal bowel sounds, non tender, soft Neurologic/Psychiatric: alert, oriented x 3 Skin Characteristics: warm/dry Assessment/Plan Resident Physician Supervision Note: I independently interviewed and examined the patient and verified the hernandez history and physical, reviewed labs and image studies, discussed the case with the resident Dr. Santoyo and agree with the findings and care plan.
[2017-11-20] MEDS ORDERED: ACETAMINOPHEN 325 MG TAB PO PRN (15:45)
[2017-11-20] MEDS ORDERED: WARFARIN SOD 5 MG TAB PO SCH (16:00)
--- NOTE | 2017-11-20 16:01 | CARDIOLOGY CONSULTATION ---
DATE OF CONSULTATION: 11/20/2017 PERTINENT HISTORY: Mr. Rich is a 77-year-old white male, transferred to this institution from [facility] with a colovesicular fistula and urinary tract infection. The patient will require a surgical repair. This consultation was ordered as a preoperative cardiology evaluation. The patient was in his usual state of health until the day of presentation. He began to notice fever and chills. When urinating, he noticed air and it is of a stool in his urine. He presented to [facility] for evaluation. A colovesicular fistula and urinary tract infection was recognized. He was transferred to this institution for further care. The patient's cardiac history began back in 2001 when he had a bioprosthetic mitral valve replacement and concurrent MAZE procedure. The patient did well until March 2011, when he had a mechanical mitral valve ([employer] 33 mm) placed along with an annuloplasty ring in the tricuspid annulus. Fortunately, a preoperative cardiac catheterization revealed normal coronary arteries. The patient continues close follow up with the [facility]. He has yearly echocardiograms and pacemaker checks. Of note, the patient carries a history of paroxysmal atrial fibrillation and flutter. He had a dual chamber pacemaker placed in 2008 because of symptomatic bradycardia. Currently, the patient is resting comfortably in bed without complaints. PAST MEDICAL HISTORY: 1. Mechanical mitral valve replacement - [employer] 33 mm - March 2011. 2. Bioprosthetic mitral valve replacement - 2001. 3. Tricuspid annuloplasty ring - March 2011. 4. Normal coronary arteries - March 2011. 5. Mild aortic insufficiency. 6. Moderate LVH. 7. Paroxysmal atrial fibrillation/flutter. 8. DDD pacemaker - 2008 - symptomatic bradycardia. 9. Status post MAZE procedure - 2001. 10. Hypertension. 11. Hypercholesterolemia. 12. Right TKR - January 2013. 13. Inguinal hernia repair. 14. Prostate carcinoma. 15. Right rotator cuff repair. MEDICATIONS: 1. Heparin drip. 2. Lopressor 75 mg b.i.d. 3. Lisinopril 15 mg daily. 4. Lasix 20 mg b.i.d. 5. Zocor 80 mg at bedtime. 6. Flomax 0.4 mg daily. 7. Terazosin 8 mg daily. 8. Mobic 15 mg per day. 9. Potassium 10 mEq b.i.d. 10. Warfarin - on hold. ALLERGIES: None. SOCIAL HISTORY: The patient is retired and lives with his . Does not use tobacco. Alcohol use is occasional. FAMILY HISTORY: Father at age 52 of an NE. Mother at age 88 of "old age". REVIEW OF SYSTEMS: Ten point review of systems is negative except for that described above. PHYSICAL EXAMINATION: GENERAL: This is a well-developed, well-nourished, white male lying supine in bed without complaints. VITAL SIGNS: Blood pressure is 144/70 with an irregular pulse of 72. Respiratory rate is 16. The patient is afebrile at 37.7 degrees Celsius. Saturations 95% on room air. HEENT: Negative. NECK: Supple with full carotid upstrokes. No carotid bruits. Jugular venous pressure is flat at 90 degrees. There is no thyromegaly. CARDIOVASCULAR: Reveals an irregular rhythm with crisp valve sounds. A 1/6 basal systolic ejection murmur is noted. No S3 or S4. No diastolic murmurs. LUNGS: Clear without rales, rhonchi, or wheezes. ABDOMEN: Soft, nontender without bruits. EXTREMITIES: Reveal intact radial artery pulses bilaterally. There is no peripheral edema. DATA: CBC notes hemoglobin of 10.8, hematocrit 31.8, white count 11.1, and platelet count 176,000. Electrolytes note a sodium of 139, potassium 4.0, chloride 107, bicarb 23, BUN 25, creatinine 1.5, and glucose 115. INR is down to 1.6. EKG notes normal sinus rhythm with a short IN interval and a complete right bundle branch block. IMPRESSION: Mr. Rich will require repair of his colovesicular fistula, and may require attention to his prostate carcinoma. He is an acceptable cardiac risk for surgery without further testing. His main issue will be that of his anticoagulation. Would continue on intravenous heparin drip until the time of surgery. Coumadin can be restarted following the procedure, when deemed appropriate by the surgical team. As long as this patient is not n.p.o., would continue his usual outpatient cardiac medications. PLAN: 1. Agree with intravenous heparin. 2. Acceptable cardiac risk for surgery. 3. Continue usual cardiac medications while taking oral nutrition. 4. Further recommendations depending on his clinical course.
[2017-11-20 18:28] LABS: PTT PATIENT 81.6 SECONDS (21.0-31.0)
[2017-11-20] MEDS: OXYCODONE HCL 20 MG TABCR (OXYCONTIN) PO SCH (20:59)
[2017-11-20] MEDS: POTASSIUM CHLORIDE 10 MEQ TABCR PO SCH (20:59)
[2017-11-20] MEDS ORDERED: SIMVASTATIN 80 MG TAB PO SCH (21:00)
[2017-11-20] MEDS: FUROSEMIDE 20 MG TAB PO SCH (21:00)
[2017-11-21 01:15] LABS: PTT PATIENT 65.8 SECONDS (21.0-31.0)
[2017-11-21] MEDS: PIPERACILL/TAZOBAC IV 3.375 GM in DEXTROSE 5% 100ML IV SCH ×2 (04:17→12:13)
[2017-11-21] MEDS: SODIUM CHLORIDE 0.9% 1000ML 1,000 ML IV SCH ×2 (05:43→13:33)
[2017-11-21] MEDS: HEPARIN 25,000 UNIT/500ML D5W 500 ML IV PRN ×3 (06:58→09:20)
[2017-11-21 06:59] VITALS: BP 146/68; PULSE 77; TEMP 36.8; O2SAT 96
[2017-11-21 08:59] LABS: INR 1.2 (0.9-1.1)
[2017-11-21] MEDS ORDERED: MONTELUKAST SOD 10 MG TAB PO SCH (09:00)
[2017-11-21] MEDS ORDERED: ASPIRIN 81 MG ECTAB PO SCH (09:00)
[2017-11-21] MEDS ORDERED: CEROVITE ADV FORMULA TAB PO SCH (09:00)
[2017-11-21] MEDS ORDERED: TAMSULOSIN HCL 0.4 MG CAP PO SCH (09:00)
[2017-11-21 09:01] LABS: HEMATOCRIT 30.4 % (42-52); HEMOGLOBIN 10.2 g/dL (14.0-18.0); MEAN CELL VOLUME 95.3 fL (80-100); MEAN CORPUSCULAR HGB CONC 33.6 g/dl (32-36); MEAN PLATELET VOLUME 9.4 fL (7.4-10.4); PLATELET COUNT 141 K/uL (130-400); RED CELL DISTRIBUTION WIDTH CV 13.5 % (11.5-14.5); RED CELL DISTRIBUTION WIDTH SD 47.8 fL (36.4-46.3); WHITE BLOOD COUNT 4.57 K/uL (4.8-10.8)
[2017-11-21 09:04] LABS: PTT PATIENT 65.3 SECONDS (21.0-31.0)
[2017-11-21] MEDS: POTASSIUM CHLORIDE 10 MEQ TABCR PO SCH (09:07)
[2017-11-21] MEDS: FUROSEMIDE 20 MG TAB PO SCH (09:07)
[2017-11-21 09:10] LABS: CALCIUM 8.2 mg/dl (8.5-10.1); CREATININE 1.35 mg/dl (0.60-1.40); POTASSIUM 3.4 mmol/L (3.5-5.1)
[2017-11-21] MEDS: OXYCODONE HCL 20 MG TABCR (OXYCONTIN) PO SCH (09:11)
[2017-11-21] MEDS ORDERED: POTASSIUM CHLORIDE 20 MEQ TABCR PO STA (09:51)
--- NOTE | 2017-11-21 10:59 | Surgery Progress Note ---
Surgery Progress Note Date of Service Nov 21, 2017. Subjective + feeling well pt is doing better, pt denies abdominal pain, no nausea, no vomiting, Objective Vital Signs: Date Time Temp Pulse Resp B/P (MAP) Pulse Ox O2 Delivery O2 Flow Rate FiO2 11/21/17 06:59 36.8 77 18 146/68 (94) 96 Room Air 11/20/17 23:53 Room Air 11/20/17 23:07 37.5 87 16 140/62 (88) 93 Room Air 11/20/17 17:50 37.0 11/20/17 16:00 38.0 88 16 136/65 (88) 92 Room Air 11/20/17 15:45 Room Air 92 11/20/17 13:23 37.4 General Appearance: WD/WN Head: normocephalic Neck: supple, no JVD Respiratory/Chest: chest non-tender, lungs clear, normal breath sounds Cardiovascular: regular rate, rhythm, no edema, no gallop, no JVD, no murmur Abdomen: normal bowel sounds, non tender, non distended, soft, no organomegaly Extremities: normal range of motion, non-tender, normal inspection Laboratory Results: Results Past 24 Hours Test 11/20/17 11:17 11/20/17 17:37 11/21/17 00:44 11/21/17 08:29 Range/Units Prostate Specific Antigen 27.600 0.000-4.000 ng/ml Activated Partial Thromboplast Time 81.6 65.8 65.3 21.0-31.0 SECONDS Partial Thromboplastin Ratio 3.1 2.5 2.5 White Blood Count 4.57 4.8-10.8 K/uL Red Blood Count 3.19 4.7-6.1 M/uL Hemoglobin 10.2 14.0-18.0 g/dL Hematocrit 30.4 42-52 % Mean Corpuscular Volume 95.3 80-100 fL Mean Corpuscular Hemoglobin 32.0 25-34 pg Mean Corpuscular Hemoglobin Concent 33.6 32-36 g/dl RDW Standard Deviation 47.8 36.4-46.3 fL RDW Coefficient of Variation 13.5 11.5-14.5 % Platelet Count 141 130-400 K/uL Mean Platelet Volume 9.4 7.4-10.4 fL Prothrombin Time 12.7 9.0-12.0 SECONDS Prothromb Time International Ratio 1.2 0.9-1.1 Sodium Level 138 136-145 mmol/L Potassium Level 3.4 3.5-5.1 mmol/L Chloride Level 108 98-107 mmol/L Carbon Dioxide Level 22 21-32 mmol/L Anion Gap 9.0 3-11 mmol/L Blood Urea Nitrogen 17 7-18 mg/dl Creatinine 1.35 0.60-1.40 mg/dl Est Creatinine Clear Calc Drug Dose 45.8 ml/min Estimated GFR () 57.5 Estimated GFR (Non- 49.6 BUN/Creatinine Ratio 12.2 10-20 Random Glucose 129 70-99 mg/dl Calcium Level 8.2 8.5-10.1 mg/dl Assessment & Plan base on pt has complicated medical history with 2 times MVR with mechanical valve, It is very difficulty to manage INR during perioperative, It is best let colorectal surgeon and urologist to do the surgery. This hospital has no cardiac surgeon and colorectal surgeon, D/W benefits, risks and alternatives of transfer higher level care, pt agrees with the transfer. D/W hospitalist,
--- NOTE | 2017-11-21 11:33 | Progress Note ---
Subjective Date of Service: Nov 21, 2017. Subjective Pt evaluation today including: conversation w/ patient, physical exam, chart review, lab review, review of studies pt to be transferred to tertiary center for colovesical fistula psa 27 after rising from 12 . Discussed need for f/u w pt souleymane after fistula repaired Objective Vital Signs Date Time Temp Pulse Resp B/P (MAP) Pulse Ox O2 Delivery O2 Flow Rate FiO2 11/21/17 11:15 Room Air 11/21/17 06:59 36.8 77 18 146/68 (94) 96 Room Air 11/20/17 23:53 Room Air 11/20/17 23:07 37.5 87 16 140/62 (88) 93 Room Air 11/20/17 17:50 37.0 11/20/17 16:00 38.0 88 16 136/65 (88) 92 Room Air 11/20/17 15:45 Room Air 92 11/20/17 13:23 37.4 Laboratory Results Last 24 Hours Test 11/20/17 17:37 11/21/17 00:44 11/21/17 08:29 Activated Partial Thromboplast Time 81.6 SECONDS 65.8 SECONDS 65.3 SECONDS Partial Thromboplastin Ratio 3.1 2.5 2.5 White Blood Count 4.57 K/uL Red Blood Count 3.19 M/uL Hemoglobin 10.2 g/dL Hematocrit 30.4 % Mean Corpuscular Volume 95.3 fL Mean Corpuscular Hemoglobin 32.0 pg Mean Corpuscular Hemoglobin Concent 33.6 g/dl RDW Standard Deviation 47.8 fL RDW Coefficient of Variation 13.5 % Platelet Count 141 K/uL Mean Platelet Volume 9.4 fL Prothrombin Time 12.7 SECONDS Prothromb Time International Ratio 1.2 Sodium Level 138 mmol/L Potassium Level 3.4 mmol/L Chloride Level 108 mmol/L Carbon Dioxide Level 22 mmol/L Anion Gap 9.0 mmol/L Blood Urea Nitrogen 17 mg/dl Creatinine 1.35 mg/dl Est Creatinine Clear Calc Drug Dose 45.8 ml/min Estimated GFR () 57.5 Estimated GFR (Non- 49.6 BUN/Creatinine Ratio 12.2 Random Glucose 129 mg/dl Calcium Level 8.2 mg/dl Assessment and Plan f/u after colovesical fistula repair souleymane w Dr. Prieto. He will need bone scan and ? repeat biopsy discuss casodex use with urology at [place] when he is transferred
--- NOTE | 2017-11-21 13:29 | CARDIOLOGY PROGRESS NOTE ---
DATE: 11/21/2017 SUBJECTIVE: Mr. Rich is resting comfortably in bed without complaints of chest pain or dyspnea. He informs me that he will be transferred to [facility] for his surgery. OBJECTIVE: VITAL SIGNS: Blood pressure 146/68 with a regular pulse of 77. Respiratory rate is 18 and the patient is afebrile at 36.8 degrees Celsius. Saturations 96% on room air. NECK: Supple with full carotid upstrokes. There are no carotid bruits. Jugular venous pressure is flat at 90 degrees. There is no thyromegaly. CARDIOVASCULAR: Reveals an irregular rhythm with crisp valve sounds. A 1/6 basal systolic ejection murmur is noted. No S3. LUNGS: Clear without rales, rhonchi, or wheezes. ABDOMEN: Soft without bruits. EXTREMITIES: Reveal intact radial artery pulses bilaterally. There is no peripheral edema. DATA: CBC notes hemoglobin of 10.2, hematocrit 30.4, white count 4.5, and platelet count 141,000. Electrolytes note a sodium of 138, potassium 3.4, chloride 102, bicarb 22, BUN 17, creatinine 1.35, and glucose 129. PTT is 65.3 with an INR of 1.2. IMPRESSION AND PLAN: 1. Mechanical mitral valve regurgitation -- [facility], 33 mm. Placed in March 2011. 2. Tricuspid annuloplasty ring -- March 2011. 3. Normal coronary arteries -- March 2011. 4. Mild aortic insufficiency. 5. Paroxysmal atrial fibrillation/flutter. 6. Status post DDD pacemaker -- 2008 - symptomatic bradycardia. 7. Hypertension -- with moderate left ventricular hypertrophy. 8. Hypercholesterolemia. 9. Colovesicular fistula -- per surgical team.
[2017-11-21] MEDS ORDERED: WARFARIN SOD 2.5 MG TAB PO SCH (16:00)
[2017-11-21 16:06] VITALS: BP 135/66; PULSE 82; TEMP 37.4; O2SAT 97
--- NOTE | 2017-11-21 16:44 | Family Medicine Progress Note ---
Progress Note Date of Service Nov 21, 2017. Subjective Pt evaluation today including: conversation w/ patient, physical exam, chart review, lab review, review of studies Patient denies any symptoms of pain today. He states that he has had less fecal matter in his urine. Constitutional: No fever, No chills Respiratory: No cough, No sputum Cardiovascular: No chest pain, No palpitations Abdomen: No pain, No nausea, No vomiting Male : No dysuria, No urinary frequency Medications Current Inpatient Medications Medications (Trade) Dose Ordered Sig/Quan Route Start Time Stop Time Status Last Admin Dose Admin Sodium Chloride 1,000 ml @ 100 mls/hr Q10H IV 11/19/17 22:45 12/19/17 22:44 11/21/17 13:33 100 MLS/HR Ondansetron HCl (Zofran Inj) 4 mg Q6H PRN IV 11/19/17 22:45 12/19/17 22:44 Hydralazine HCl (HydrALAZINE INJ) 10 mg Q4H PRN IV. 11/19/17 22:45 12/19/17 22:44 Piperacillin Sod/ Tazobactam Sod 3.375 gm/Dextrose 115 ml @ 28.75 mls/ hr Q8H IV 11/20/17 04:00 11/30/17 03:59 11/21/17 12:13 28.75 MLS/HR Piperacillin Sod/ Tazobactam Sod (Consult) 1 ea UD PRN N/A 11/20/17 00:15 12/20/17 00:14 Warfarin Sodium (Coumadin Tab) 2.5 mg SuTuWeThSa@1600 PO 11/21/17 16:00 12/21/17 15:59 Future Hold Warfarin Sodium (Coumadin Tab) 5 mg MoFr@1600 PO 11/20/17 16:00 12/20/17 15:59 Future Hold Heparin Sodium/ Dextrose 500 ml @ 24 mls/hr [id number] PRN IV 11/20/17 10:30 12/20/17 10:29 11/21/17 09:20 24 MLS/HR Oxycodone HCl (Oxycontin Tab) 20 mg Q12 PO 11/20/17 21:00 12/04/17 20:59 11/21/17 09:11 20 MG Oxycodone HCl (Roxicodone Immediate Rel Tab) Take 1-2 tabs as needed ... Q4H PRN PO 11/20/17 13:45 12/04/17 13:44 11/20/17 14:06 5 MG Acetaminophen (Tylenol Tab) 650 mg Q4H PRN PO 11/20/17 15:45 12/20/17 15:44 11/20/17 16:23 650 MG Aspirin (Ecotrin Tab) 81 mg DAILY PO 11/21/17 09:00 12/21/17 08:59 11/21/17 09:06 81 MG Furosemide (Lasix Tab) 20 mg BID PO 11/20/17 21:00 12/20/17 20:59 11/21/17 09:07 20 MG Montelukast Sodium (Singulair Tab) 10 mg DAILY PO 11/21/17 09:00 12/21/17 08:59 11/21/17 09:07 10 MG Multivitamins/ Minerals (Multivitamin W/ Minerals Tab) 1 tab DAILY PO 11/21/17 09:00 12/21/17 08:59 11/21/17 09:06 1 TAB Potassium Chloride (Klor-Con M10) 10 meq BID PO 11/20/17 21:00 12/20/17 20:59 11/21/17 09:07 10 MEQ Simvastatin (Zocor Tab) 80 mg QPM PO 11/20/17 21:00 12/20/17 20:59 11/20/17 21:00 80 MG Tamsulosin HCl (Flomax Cap) 0.4 mg DAILY PO 11/21/17 09:00 12/21/17 08:59 11/21/17 09:07 0.4 MG Objective Vital Signs Date Time Temp Pulse Resp B/P (MAP) Pulse Ox O2 Delivery O2 Flow Rate FiO2 11/21/17 11:15 Room Air 11/21/17 06:59 36.8 77 18 146/68 (94) 96 Room Air 11/20/17 23:53 Room Air 11/20/17 23:07 37.5 87 16 140/62 (88) 93 Room Air 11/20/17 17:50 37.0 Physical Exam General Appearance: WD/WN, no apparent distress Respiratory/Chest: chest non-tender, lungs clear, normal breath sounds, no respiratory distress Cardiovascular: regular rate, rhythm, no edema, no gallop Abdomen: normal bowel sounds, non tender, soft, no organomegaly Neurologic/Psychiatric: alert, normal mood/affect, oriented x 3 Skin: normal color, warm/dry, no rash Laboratory Results 11/21/17 08:29 11/21/17 08:29 Test 11/21/17 08:29 Red Blood Count 3.19 M/uL (4.7-6.1) Mean Corpuscular Volume 95.3 fL (80-100) Mean Corpuscular Hemoglobin 32.0 pg (25-34) Mean Corpuscular Hemoglobin Concent 33.6 g/dl (32-36) RDW Standard Deviation 47.8 fL (36.4-46.3) RDW Coefficient of Variation 13.5 % (11.5-14.5) Mean Platelet Volume 9.4 fL (7.4-10.4) Prothrombin Time 12.7 SECONDS (9.0-12.0) Prothromb Time International Ratio 1.2 (0.9-1.1) Activated Partial Thromboplast Time 65.3 SECONDS (21.0-31.0) Partial Thromboplastin Ratio 2.5 Anion Gap 9.0 mmol/L (3-11) Est Creatinine Clear Calc Drug Dose 45.8 ml/min Estimated GFR () 57.5 Estimated GFR (Non- 49.6 BUN/Creatinine Ratio 12.2 (10-20) Calcium Level 8.2 mg/dl (8.5-10.1) Assessment and Plan Patient is a 77 year old male with a past medical history of prostate cancer, hypertension, hyperlipidemia, Afib on Coumadin, mechanical mitral valve, pacemaker, and chronic pain that presents as a transfer from [facility] with concerns of Colovesicular fistula Colovesicular Fistula, in setting of Prostate cancer [place] 3+3 - IVF 100mls/hr IV NS - Zosyn for GI/ source of infection, day 2 - Patient is in the process of being transferred to [place] for colorectal surgery - PSA 27. Urology aware and following. They recommend close follow up following surgery; repeat bone scan and biopsy. Bacteremia, gram neg likely urinary source - sec to colovesicular fistula Probable UTI - IV Zosyn, day 2 - Blood Cultures growing gram neg bacilli, Urine Culture shows gram negative bacilli - UA shows 2+ protein, blood, leukocytes, RBCs, WBCs, and bacteria. Likely related to contained GI fistula. JESSICA - IV hydration. -Normalized today -follow bmp Paroxysmal Atrial Fibrillation - Continuing to hold warfarin - 10mg Phytonadione given on admission - Patient given IV heparin Chronic diastolic chf - Lasix on hold Hypertension - Hold home Lisinopril - Hydralazine 10mg IV q4h PRN for SBP > 160 HLD - Resume Zocor BPH - Resume Flomax Chronic Pain 2/2 arthritis - Patient on significant home dose of narcotics - Roxicodone 10/325 mg q4h and oxy ER 20 q12
--- NOTE | 2017-11-21 17:51 | Discharge Summary ---
Discharge Summary Date of Service Nov 21, 2017. Discharge Summary Admission Date: Nov 19, 2017 at 23:07 Discharge Disposition: Acute care facility Principal Diagnosis: Colovesical fistula Immunizations: Have You Had Influenza Vaccine: Yes Influenza Vaccine Date: Oct 04, 2012 History of Tetanus Vaccine?: Yes History of Pneumococcal: Yes Pneumococcal Date: Feb 03, 2013 History of Hepatitis B Vaccine: No Discharge Exam 11/21/17 08:29 11/21/17 08:29 Test 11/21/17 08:29 Red Blood Count 3.19 M/uL (4.7-6.1) Mean Corpuscular Volume 95.3 fL (80-100) Mean Corpuscular Hemoglobin 32.0 pg (25-34) Mean Corpuscular Hemoglobin Concent 33.6 g/dl (32-36) RDW Standard Deviation 47.8 fL (36.4-46.3) RDW Coefficient of Variation 13.5 % (11.5-14.5) Mean Platelet Volume 9.4 fL (7.4-10.4) Prothrombin Time 12.7 SECONDS (9.0-12.0) Prothromb Time International Ratio 1.2 (0.9-1.1) Activated Partial Thromboplast Time 65.3 SECONDS (21.0-31.0) Partial Thromboplastin Ratio 2.5 Anion Gap 9.0 mmol/L (3-11) Est Creatinine Clear Calc Drug Dose 45.8 ml/min Estimated GFR () 57.5 Estimated GFR (Non- 49.6 BUN/Creatinine Ratio 12.2 (10-20) Calcium Level 8.2 mg/dl (8.5-10.1) Reported Home Medications Medications Dose Route/Sig Max Daily Dose Days Date Category Dose Instructions Feosol (Carbonyl Iron) 45 Mg Tab 65 Mg PO HS 11/19/17 Reported Montelukast Sodium 10 Mg Tab 10 Mg PO DAILY 30 11/19/17 Reported Jantoven (Warfarin Sodium) 2.5 Mg Tab 2.5 Mg PO DAILY 11/19/17 Reported Jantoven (Warfarin Sodium) 5 Mg Tab 5 Mg PO DAILY 11/19/17 Reported Lopressor (Metoprolol Tartrate) 50 Mg Tab 75 Mg PO BID 11/19/17 Reported Zestril (Lisinopril) 5 Mg Tab 5 Mg PO DAILY 11/19/17 Reported Mvi With Minerals (Multivitamins/Minerals) Tab 1 Tab PO DAILY 11/19/17 Reported Aspirin Ec (Aspirin) 81 Mg Tab 81 Mg PO DAILY 11/19/17 Reported Micro-K Ext Rel (Potassium Chloride) 10 Meq Capcr 10 Meq PO BID 11/19/17 Reported Flomax (Tamsulosin Hcl) 0.4 Mg Cap 1 Cap PO DAILY 30 11/19/17 Reported Lasix (Furosemide) 20 Mg Tab 20 Mg PO BID 11/19/17 Reported Keflex (Cephalexin Monohydrate) 500 Mg Cap 500 Mg PO TID 02/05/13 Rx Roxicodone Ir (Oxycodone HCl) 5 Mg Tab 5-10 Mg PO Q4H PRN 02/05/13 Rx Oxycodone Hcl Er (Oxycodone Hcl) 10 Mg Tab 20 Mg PO Q12 02/05/13 Rx Warfarin Sodium 5 Mg Tab 5 Mg PO 2XWK 01/06/13 Reported ON MONDAYS AND FRIDAYS Coumadin (Warfarin Sod) 2.5 Mg Tab 2.5 Mg PO 5XWK 01/06/13 Reported EVERY DAY EXCEPT THURSDAY AND THURSDAY [Multi Vitamins] 1 Tab PO QAM 01/06/13 Reported [Terazosin] 8 Mg PO HS 01/06/13 Reported Zocor (Simvastatin) 80 Mg Tab 80 Mg PO QPM 01/06/13 Reported Mobic (Meloxicam) 15 Mg Tab 15 Mg PO QPM 01/06/13 Reported [Metoprolol] 75 Mg PO BID 01/06/13 Reported Prinivil (Lisinopril) 10 Mg Tab 10 Mg PO QAM 01/06/13 Reported Glucosamine (Glucosamine Sulfate) 500 Mg Cap 2 Capsules PO BID 01/06/13 Reported Aspir-Low (Aspirin) 81 Mg Tab 1 Tab PO QAM 01/06/13 Reported Current Inpatient Medications Medications (Trade) Dose Ordered Sig/Quan Route Start Time Stop Time Status Last Admin Dose Admin Sodium Chloride 1,000 ml @ 100 mls/hr Q10H IV 11/19/17 22:45 12/19/17 22:44 11/21/17 13:33 100 MLS/HR Ondansetron HCl (Zofran Inj) 4 mg Q6H PRN IV 11/19/17 22:45 12/19/17 22:44 Hydralazine HCl (HydrALAZINE INJ) 10 mg Q4H PRN IV. 11/19/17 22:45 12/19/17 22:44 Piperacillin Sod/ Tazobactam Sod 3.375 gm/Dextrose 115 ml @ 28.75 mls/ hr Q8H IV 11/20/17 04:00 11/30/17 03:59 11/21/17 12:13 28.75 MLS/HR Piperacillin Sod/ Tazobactam Sod (Consult) 1 ea UD PRN N/A 11/20/17 00:15 12/20/17 00:14 Warfarin Sodium (Coumadin Tab) 2.5 mg SuTuWeThSa@1600 PO 11/21/17 16:00 12/21/17 15:59 Future Hold Warfarin Sodium (Coumadin Tab) 5 mg MoFr@1600 PO 11/20/17 16:00 12/20/17 15:59 Future Hold Heparin Sodium/ Dextrose 500 ml @ 24 mls/hr [id number] PRN IV 11/20/17 10:30 12/20/17 10:29 11/21/17 09:20 24 MLS/HR Oxycodone HCl (Oxycontin Tab) 20 mg Q12 PO 11/20/17 21:00 12/04/17 20:59 11/21/17 09:11 20 MG Oxycodone HCl (Roxicodone Immediate Rel Tab) Take 1-2 tabs as needed ... Q4H PRN PO 11/20/17 13:45 12/04/17 13:44 11/20/17 14:06 5 MG Acetaminophen (Tylenol Tab) 650 mg Q4H PRN PO 11/20/17 15:45 12/20/17 15:44 11/20/17 16:23 650 MG Aspirin (Ecotrin Tab) 81 mg DAILY PO 11/21/17 09:00 12/21/17 08:59 11/21/17 09:06 81 MG Furosemide (Lasix Tab) 20 mg BID PO 11/20/17 21:00 12/20/17 20:59 11/21/17 09:07 20 MG Montelukast Sodium (Singulair Tab) 10 mg DAILY PO 11/21/17 09:00 12/21/17 08:59 11/21/17 09:07 10 MG Multivitamins/ Minerals (Multivitamin W/ Minerals Tab) 1 tab DAILY PO 11/21/17 09:00 12/21/17 08:59 11/21/17 09:06 1 TAB Potassium Chloride (Klor-Con M10) 10 meq BID PO 11/20/17 21:00 12/20/17 20:59 11/21/17 09:07 10 MEQ Simvastatin (Zocor Tab) 80 mg QPM PO 11/20/17 21:00 12/20/17 20:59 11/20/17 21:00 80 MG Tamsulosin HCl (Flomax Cap) 0.4 mg DAILY PO 11/21/17 09:00 12/21/17 08:59 11/21/17 09:07 0.4 MG Review of Systems: Constitutional: No fever, No chills Respiratory: No cough, No shortness of breath Cardiovascular: No chest pain Abdomen: No pain, No nausea, No vomiting, No diarrhea Genitourinary - Male: + dysuria, + problem reported (stool in urine) Physical Exam: General Appearance: WD/WN, no apparent distress Respiratory/Chest: chest non-tender, lungs clear, normal breath sounds Cardiovascular: regular rate, rhythm, no edema, no murmur Abdomen / GI: normal bowel sounds, non tender, soft Neurologic/Psychiatric: normal mood/affect, normal reflexes, oriented x 3 Skin: normal color, warm/dry, no rash Hospital Course Patient is a 77 year old male with a past medical history of prostate cancer and biomechanical heart valve presented with as a transfer from [facility] with concerns of Colovesicular fistula. In the ED at [place], the patient had an abdominal CT showing an irregular collection concerning for abscess between the sigmoid colon and bladder concerning for an abscess.In addition, intraluminal gas and wall thickening associated with the urinary bladder was seen. The patient was started on IV Zosyn. In preparation for surgery, the patient Warfarin has been discontinued, Vitamin K therapy and IV heparin therapy were initiated. Patient was seen by the following specialist; General Surgery, Urology and Cardiology. By the recommendation of general surgery, the patient was recommended for colorectal surgery at [facility]. The following risk of were considered for the transfer; mechanical valve and need for anticoagulation and age of the patient. He was noted to be growing Gram negative bacilli in one of blood culture and also in the urine culture. Final cultures are pending at the time of transfer. The patient was also found to have a PSA of 27. Had been treated in the past for prostate cancer, [place] 3. Patient should follow up closely with Urology following recovery from surgery. Recommendations include; bone scan and biopsy. Total Time Spent: Greater than 30 minutes This includes examination of the patient, discharge planning, medication reconciliation, and communication with other providers. Discharge Instructions Please refer to the electronic Patient Visit Report (Discharge Instructions) for additional information. Reviewed: Pt Seen/Exam by Me History urine seemed darker today but no other concerns Constitutional: denies: fever Respiratory: negative: short of breath Cardiovascular: denies chest pain General Appearance: no apparent distress Respiratory: lungs clear, no respiratory distress Cardiovascular: regular rate, rhythm Gastrointestinal: normal bowel sounds, non tender, soft Neurologic/Psychiatric: alert, oriented x 3 Assessment/Plan Resident Physician Supervision Note: I independently interviewed and examined the patient and verified the hernandez history and physical, reviewed labs and image studies, discussed the case with the resident Dr. Lee and agree with the findings and care plan. Time spent in discharge 60 min
[2017-11-21 19:06] VITALS: BP 135/66; PULSE 82; TEMP 37.4; O2SAT 97
== END 2017-11-21 19:58 | disposition short-term general hospital (02) | DRG 699 ==
LOC: C.MSN 21:12 → UNDOADMIN 21:12 → C.MSN 23:07
PROVIDERS: ADMIT Internal Medicine; ATTEND Family Medicine
DX: N32.1 Vesicointestinal fistula (principal); N39.0 Urinary tract infection, site not specified; I50.32 Chronic diastolic (congestive) heart failure; R78.81 Bacteremia; N17.9 Acute kidney failure, unspecified; Z85.46 Personal history of malignant neoplasm of prostate; I11.0 Hypertensive heart disease with heart failure; I48.0 Paroxysmal atrial fibrillation; F17.200 Nicotine dependence, unspecified, uncomplicated; N40.1 Benign prostatic hyperplasia with lower urinary tract symptoms; I25.10 Atherosclerotic heart disease of native coronary artery without angina pectoris; R79.1 Abnormal coagulation profile; Z96.651 Presence of right artificial knee joint; K57.90 Diverticulosis of intestine, part unspecified, without perforation or abscess without bleeding; B96.89 Other specified bacterial agents as the cause of diseases classified elsewhere; Z95.2 Presence of prosthetic heart valve; Z95.0 Presence of cardiac pacemaker; Z79.82 Long term (current) use of aspirin; Z79.01 Long term (current) use of anticoagulants

== ENCOUNTER → 2018-01-06 | Outpatient (CLI) | payer OTHER ==
[~2018-01-06] MED LIST changes: +ASPI81TA28 PO; +CARB1TAB29 PO; +FURO-85 PO; +LISI-729 PO; +METO50TA16 PO; +MONT1TAB5 PO; +MULT-513 PO; +POTA10CA28 PO; +TAMS0.4C38 PO; +WARF2.5T8 PO; +WARF5TAB7 PO
--- NOTE | 2018-01-06 11:29 | DIAGNOSTIC IMAGING REPORT ---
BARIUM ENEMA CLINICAL HISTORY: 77 years-old Male with GASTROGRAFIN - COLOVESCICULAR FISTULA. History of diverticulitis with questioned colovesicular fistula. TECHNIQUE: A limited Gastrografin enema was obtained with 11 spot fluoroscopic images, a bleaching machine operator image and a postevacuation image. COMPARISON STUDY: CT abdomen and pelvis 11/19/2017 FLUOROSCOPY TIME: 1.3 minutes. FINDINGS: The patient was placed in a left lateral decubitus position on the fluoroscopy table and a catheter tip from a barium enema kit was placed carefully into the patient's rectum by the x-ray technologist. Placement was confirmed with fluoroscopy and the balloon was then inflated. Diluted Gastrografin was then administered via gravity and subsequent multiple spot fluoroscopic images were obtained. Contrast flows freely into the rectum and sigmoid colon without evidence of focal stricture, mucosal abnormality or intraluminal lesion identified on these limited images. Extensive colonic diverticulosis identified. No extravasation of contrast is noted to suggest colovesicular fistula. Leaking of contrast outside the rectum occurred throughout the study which limited the exam. No evidence of perforation. Fur Glazer image demonstrates a nonobstructive bowel gas pattern. Levoscoliosis of the lumbar spine with severe multilevel degenerative changes. Atherosclerosis of the aorta noted. Postevacuation image demonstrates contrast within the colon without contrast seen within the urinary bladder lumen. IMPRESSION: 1. No evidence of colovesicular fistula. 2. Extensive colonic diverticulosis. The above report was generated using voice recognition software. It may contain grammatical, syntax or spelling errors. Electronically signed by: Francisco Hunt M.D. 01/06/2018 11:28 AM Dictated Date/Time: 01/06/2018 11:23 AM
== END | disposition home or self-care (01) ==
LOC: C.RAD 09:33
PROVIDERS: ATTEND Colon & Rectal Surgery
DX: Z09 Encounter for follow-up examination after completed treatment for conditions other than malignant neoplasm (principal); K57.30 Diverticulosis of large intestine without perforation or abscess without bleeding; Z88.8 Allergy status to other drugs, medicaments and biological substances

== ENCOUNTER 2018-06-02 19:13 | Inpatient (IN) | payer OTHER ==
[~2018-06-02] VITALS: Ht 177.8 cm; Wt 75.5 kg
[~2018-06-02 19:13] MED LIST changes: +OXYC-90 PO; -OXYC1TAB3 PO
[2018-06-02 20:08] LABS: BASO % 0.2 %; BASO ABS # 0.01 K/uL (0-0.2); EOS % 2.4 %; EOS ABS # 0.15 K/uL (0-0.5); HEMATOCRIT 28.7 % (42-52); HEMOGLOBIN 9.3 g/dL (14.0-18.0); IG# 0.01 K/uL (0.00-0.02); LYMPH % 13.2 %; LYMPH ABS # 0.83 K/uL (1.2-3.4); MEAN CELL VOLUME 97.3 fL (80-100); MEAN CORPUSCULAR HEMOGLOBIN 31.5 pg (25-34); MEAN CORPUSCULAR HGB CONC 32.4 g/dl (32-36); MEAN PLATELET VOLUME 9.4 fL (7.4-10.4); MONO ABS # 0.75 K/uL (0.11-0.59); NEUT ABS # 4.52 K/uL (1.4-6.5); PLATELET COUNT 266 K/uL (130-400); RED CELL DISTRIBUTION WIDTH CV 14.2 % (11.5-14.5); RED CELL DISTRIBUTION WIDTH SD 50.2 fL (36.4-46.3); WHITE BLOOD COUNT 6.27 K/uL (4.8-10.8)
[2018-06-02 20:28] LABS: ALBUMIN 3.2 gm/dl (3.4-5.0); CALCIUM 8.1 mg/dl (8.5-10.1); CREATININE 1.17 mg/dl (0.60-1.40); POTASSIUM 3.9 mmol/L (3.5-5.1); TOTAL PROTEIN 6.4 gm/dl (6.4-8.2)
[2018-06-02] MEDS ORDERED: CEFTRIAXONE SOD INJ 1 GM ADDVIAL IV STA (20:37)
--- NOTE | 2018-06-02 20:50 | DIAGNOSTIC IMAGING REPORT ---
ABDOMEN AND PELVIS CT WITHOUT CONTRAST CT DOSE: 823.03 mGycm HISTORY: lower abdominal pain, recent colostomy reversal TECHNIQUE: Multiaxial CT images of the abdomen and pelvis were performed without contrast. A dose lowering technique was utilized adhering to the principles of ALARA. COMPARISON STUDY: Outside hospital abdomen and pelvis CT 02/20/2018. FINDINGS: Mild interstitial thickening seen within the bases of the lower lobes. Pacemaker wires are noted. The heart is mildly enlarged. There are poststernotomy changes. No suspicious lytic or blastic osseous lesions. Old, healed right-sided rib fractures. Advanced degenerative changes within the lumbar spine. Moderate body wall edema. 2 punctate foci of gas adjacent to the gallbladder on image 162. This is indeterminate but may be within an adjacent bowel loop. Focal area of increased density inferior to the right hepatic lobe on image 193. This is difficult to characterize due to the lack of contrast but could be due to multiple decompressed bowel loops within the small amount of surrounding complex fluid/hemorrhage. Bladder is mildly thickened. The prostate gland is enlarged. Small cystic focus posterior to the bladder wall has decreased in size. This currently measures 2 cm, previously measuring 4 cm. This may represent a resolving abscess. Anastomotic suture material at the distal sigmoid colon. Multiple colonic diverticula. Mild inflammatory change surrounding a diverticulum at this location which has improved consistent with a resolving diverticulitis. There is suboptimal evaluation for bowel pathology due to the lack of intravenous and oral contrast. Small amount of intermediate density fluid along the paracolic gutters. This could represent complex fluid or a small amount of hemorrhage. Status post reversal of the left-sided colostomy. There is anastomotic suture material at the distal transverse colon. There is mild thickening at the anastomosis in mild adjacent inflammatory change. Moderate well-formed stool seen within the colon. No dilated loops of small bowel to suggest an obstruction. The appendix is filled with gas. Therefore, no evidence for acute appendicitis. Trace perihepatic and perisplenic fluid. This appears to be hyperdense and may represent a small amount of hemorrhage. There appears to be a small amount of hemorrhage or complex fluid along the right paracolic gutter. This is similar to the prior study. The unenhanced liver, gallbladder, spleen, right kidney, and adrenal glands are unremarkable. The unenhanced pancreas appears within normal limits. No retroperitoneal lymphadenopathy. Left-sided nephrolithiasis. The dominant stone measures 4 mm. There is a 4.4 cm left renal cyst. There is mild fullness within the left renal pelvis without keila hydronephrosis. No ureteral calculi identified. A 5.2 x 1.9 cm focal density anterior to the lower pole the left kidney. This could represent a small amount of hemorrhage versus decompressed loop of bowel. IMPRESSION: 1. Small amount of intermediate density fluid within the perihepatic, perisplenic, and right greater the left paracolic gutters. This favors a small amount of hemorrhage. This is similar to the prior study. 2. Small fluid collection posterior to the bladder. This is decreased in size and favors a resolving abscess. 3. Status post reversal of the left-sided colostomy. There is mild thickening and adjacent fat stranding at the anastomotic suture site within the distal transverse colon. This favors the expected postoperative change. A mild diverticulitis/colitis could also have a similar appearance. 4. Mild diverticulitis within the distal sigmoid colon. This has significantly improved in the interval. 5. Moderate body wall edema. 6. Mild interstitial thickening within the bases of the lower lobes. This could represent atelectasis or a pneumonitis. 7. Mild form is within the left renal collecting system without keila hydronephrosis. There is a left-sided nephrolithiasis. No ureteral calculi. 8. No bowel obstruction. 9. Additional findings as described above. Electronically signed by: Costa Bernard M.D. 06/02/2018 8:49 PM Dictated Date/Time: 06/02/2018 8:29 PM
[2018-06-02] MEDS ORDERED: METRONIDAZOLE 500MG / 100ML NSS IV STA (21:14)
[2018-06-02] MEDS ORDERED: HYDR-4079 PO (21:29)
[2018-06-02] MEDS ORDERED: ACET-1256 PO (21:29)
[2018-06-02] MEDS: HYDROCODONE/ACETAMI 10/325 TAB PO PRN (22:24)
--- NOTE | 2018-06-02 22:31 | Surgery Consultation ---
Consultation Date of Consultation: Jun 02, 2018. Attending Physician: Reason for Consultation: Abdominal pain s/p colostomy reversal. History of Present Illness Patient is an 78M w/ PMH HTN, afib, mitral valve prothesis, cardiac pacemaker, and diverticulitis who presents to the ED this evening with Abdominal pain starting yesterday morning. Patient reports his pain wraps across his mid-lower abdomen. Reports feeling slightly bloated as well. Denies fever, chills, recent illness, nausea, vomiting. He has been moving his bowels without issue. Last BM yesterday morning. Denies blood in stool. Urinating without issue. Reports he had a recent colostomy reversal by Brandi rocha approximately 2-3 weeks ago. WBC WNL. 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 Patient does take Aspirin 81mg daily and is on coumadin therapy for afib. Patient reports his pain is currently down to a 3/10 from an 8/10 when he first arrived. He has not been given any pain medication since he arrived. He does note he took 10mg [place] around 4p today. CT in the ED shows small amount of intermediate density fluid within the perihepatic, perisplenic, and right greater the left paracolic gutters. This favors a small amount of hemorrhage. This is similar to the prior study. Small fluid collection posterior to the bladder. This is decreased in size and favors a resolving abscess. Status post reversal of the left-sided colostomy. There is mild thickening and adjacent fat stranding at the anastomotic suture site within the distal transverse colon. This favors the expected postoperative change. A mild diverticulitis/colitis could also have a similar appearance. Mild diverticulitis within the distal sigmoid colon. This has significantly improved in the interval. Moderate body wall edema. No bowel obstruction. Patient does have a recent CT from February showing similar findings. WBC WNL. vitals stable. afebrile. Family History No pertinent family history Social History Smoking Status: Former Smoker Drug Use: none Allergies Coded Allergies: No Known Allergies (Unverified , 06/02/18) Home Medications Scheduled Aspirin (Aspir-Low), 1 TAB PO QAM Carbonyl Iron (Feosol), 65 MG PO HS Furosemide (Lasix), 20 MG PO BID Lisinopril (Zestril), 5 MG PO DAILY Metoprolol Tartrate (Lopressor) (Lopressor), 75 MG PO BID Montelukast Sodium (Montelukast Sodium), 10 MG PO DAILY Multivitamins/Minerals (Mvi With Minerals), 1 TAB PO DAILY Potassium Chloride (Micro-K Ext Rel), 10 MEQ PO BID Simvastatin (Zocor), 80 MG PO QPM Tamsulosin Hcl (Flomax), 1 CAP PO DAILY Warfarin Sod (Coumadin), 2.5 MG PO 5XWK Warfarin Sodium (Warfarin Sodium), 5 MG PO 2XWK Scheduled PRN Acetaminophen (Tylenol), 1,000 MG PO Q6H PRN for Pain Hydrocodone/Acetaminophen 10MG/325MG ([place] 10MG/325MG), 1 TAB PO QID PRN for Pain Review of Systems Constitutional: No fever, No chills Respiratory: No shortness of breath Cardiovascular: No chest pain Abdomen: + pain (generalized, lower abdomen more prominent), No nausea, No vomiting, No diarrhea, No constipation Genitourinary - Male: No hematuria, No dysuria Integumentary: No new/changing skin lesions, No color change Physical Exam Date Time Temp Pulse Resp B/P (MAP) Pulse Ox O2 Delivery O2 Flow Rate FiO2 06/02/18 21:38 79 24 121/71 96 Room Air 06/02/18 20:01 76 20 129/69 96 Room Air 06/02/18 19:53 71 06/02/18 19:16 36.7 86 16 142/65 95 Room Air General Appearance: WD/WN, no apparent distress Head: normocephalic, atraumatic ENT: hearing grossly normal Respiratory/Chest: no respiratory distress Abdomen/GI: normal bowel sounds, soft, no organomegaly, no pulsatile mass, + tenderness (generalized TTP most prominent in hypogastric and periumbilical areas), + pertinent finding (Open wound (ulcerated) right below the umbilicus healing by secondary intention without any signs of infections or necrosis.) Neurologic/Psych: alert, normal mood/affect, oriented x 3 Skin: normal color, warm/dry Laboratory Results Last 24 Hours Test 06/02/18 19:35 06/02/18 19:42 Urine Color YELLOW Urine Appearance CLOUDY Urine pH 5.5 Urine Specific Peck 1.013 Urine Protein NEG Urine Glucose (UA) NEG Urine Ketones NEG Urine Occult Blood 1+ Urine Nitrite POS Urine Bilirubin NEG Urine Urobilinogen NEG Urine Leukocyte Esterase LARGE Urine WBC (Auto) >30 /hpf Urine RBC (Auto) 5-10 /hpf Urine Hyaline Casts (Auto) 0 /lpf Urine Epithelial Cells (Auto) 0-5 /lpf Urine Bacteria (Auto) 4+ White Blood Count 6.27 K/uL Red Blood Count 2.95 M/uL Hemoglobin 9.3 g/dL Hematocrit 28.7 % Mean Corpuscular Volume 97.3 fL Mean Corpuscular Hemoglobin 31.5 pg Mean Corpuscular Hemoglobin Concent 32.4 g/dl Platelet Count 266 K/uL Mean Platelet Volume 9.4 fL Neutrophils (%) (Auto) 72.0 % Lymphocytes (%) (Auto) 13.2 % Monocytes (%) (Auto) 12.0 % Eosinophils (%) (Auto) 2.4 % Basophils (%) (Auto) 0.2 % Neutrophils # (Auto) 4.52 K/uL Lymphocytes # (Auto) 0.83 K/uL Monocytes # (Auto) 0.75 K/uL Eosinophils # (Auto) 0.15 K/uL Basophils # (Auto) 0.01 K/uL RDW Standard Deviation 50.2 fL RDW Coefficient of Variation 14.2 % Immature Granulocyte % (Auto) 0.2 % Immature Granulocyte # (Auto) 0.01 K/uL Sodium Level 138 mmol/L Potassium Level 3.9 mmol/L Chloride Level 105 mmol/L Carbon Dioxide Level 27 mmol/L Anion Gap 6.0 mmol/L Blood Urea Nitrogen 20 mg/dl Creatinine 1.17 mg/dl Est Creatinine Clear Calc Drug Dose 52.0 ml/min Estimated GFR () 67.8 Estimated GFR (Non- 58.5 BUN/Creatinine Ratio 16.7 Random Glucose 109 mg/dl Calcium Level 8.1 mg/dl Total Bilirubin 0.5 mg/dl Direct Bilirubin 0.2 mg/dl Aspartate Amino Transf (AST/SGOT) 21 U/L Alanine Aminotransferase (ALT/SGPT) 27 U/L Alkaline Phosphatase 98 U/L Total Protein 6.4 gm/dl Albumin 3.2 gm/dl Lipase 234 U/L Assessment & Plan Abdominal pain s/p colostomy reversal, Trace fluid within abdomen on CT - hemorrhage? Imaging reviewed with Dr. Oliveira and Dr. Bernard. Abdomen soft, non-distended, mild diffuse tenderness. no N/V at this time. + flatus. afebrile, vitals stable. WBC WNL. H&H 9.3/28.7. No acute surgical intervention indicated at this time. Hemorrhage unlikely as patient is stable and CT findings reflect similar ones from previous CT in February. Pain more likely due to mild diverticulitis and UTI at this time. Reasonable to admit for overnight observation. Admit per medical team. Repeat labs in AM, coag studies. npo except sips/meds , IVF, IV Abx. Will re-evaluate in AM. Please contact with questions or concerns.
--- NOTE | 2018-06-02 22:39 | History and Physical ---
History & Physical Date & Time of Service: Jun 02, 2018 at 22:38 Chief Complaint: Belly Ache Primary Care Physician: Ayden Mcmullen M.D. History of Present Illness Source: patient, hospital records The patient is an 78-year-old male who presents to the emergency department with complaint of abdominal pain that began since yesterday morning. His past medical history is significant for colovesical fistula repair, and reversal of colostomy 3 weeks ago. He reports that he had been doing well until yesterday morning. He does note some dysuria. Past Medical/Surgical History Medical Problems: (1) Atrial fibrillation (2) Benign hypertension (3) Colovesical fistula (4) Diverticulosis of colon without diverticulitis (5) Implantation of cardiac pacemaker (6) Implantation of mitral valve prosthesis or synthetic device (7) Repair of tricuspid valve (8) UTI (urinary tract infection) Family History No pertinent family history Social History Smoking Status: Former Smoker Smokeless Tobacco Use: No Alcohol Use: none Drug Use: none Occupational Status: retired Immunizations History of Influenza Vaccine: Yes Influenza Vaccine Date: Oct 04, 2012 History of Tetanus Vaccine?: Yes History of Pneumococcal: Yes Pneumococcal Date: Feb 03, 2013 History of Hepatitis B Vaccine: No Allergies Coded Allergies: No Known Allergies (Unverified , 06/02/18) Home Medications Scheduled Aspirin (Aspir-Low), 1 TAB PO QAM Carbonyl Iron (Feosol), 65 MG PO HS Furosemide (Lasix), 20 MG PO BID Lisinopril (Zestril), 5 MG PO DAILY Metoprolol Tartrate (Lopressor) (Lopressor), 75 MG PO BID Montelukast Sodium (Montelukast Sodium), 10 MG PO DAILY Multivitamins/Minerals (Mvi With Minerals), 1 TAB PO DAILY Potassium Chloride (Micro-K Ext Rel), 10 MEQ PO BID Simvastatin (Zocor), 80 MG PO QPM Tamsulosin Hcl (Flomax), 1 CAP PO DAILY Warfarin Sod (Coumadin), 2.5 MG PO 5XWK Warfarin Sodium (Warfarin Sodium), 5 MG PO 2XWK Scheduled PRN Acetaminophen (Tylenol), 1,000 MG PO Q6H PRN for Pain Hydrocodone/Acetaminophen 10MG/325MG ([place] 10MG/325MG), 1 TAB PO QID PRN for Pain Review of Systems The patient denies chest pain, palpitations, shortness of breath, dyspnea on exertion, cough, lower extremity swelling, sore throat, fevers, chills, sweats, weight change, fatigue, nausea, vomiting, diarrhea, blood in urine or stool, urinary frequency or urgency, lightheadedness, dizziness, headache, memory loss, loss of consciousness, rash, abnormal bruising or bleeding, imbalance, focal or generalized weakness, numbness or tingling in arms or legs, generalized arthralgias or myalgias, back or neck pain, or night sweats. The review of systems is otherwise negative other than for that already noted above, and at least 10 systems have been reviewed. Physical Exam Vital Signs Date Time Temp Pulse Resp B/P (MAP) Pulse Ox O2 Delivery O2 Flow Rate FiO2 06/02/18 21:38 79 24 121/71 96 Room Air 06/02/18 20:01 76 20 129/69 96 Room Air 06/02/18 19:53 71 06/02/18 19:16 36.7 86 16 142/65 95 Room Air The patient is awake, alert and oriented 3, well developed and well nourished, normocephalic and atraumatic, lying in bed and in no acute distress. HEENT--PERRL, EOMI, mucous membranes and oropharynx dry. Neck--supple. No JVD. No bruits. Thyroid normal, trachea midline, no adenopathy. Heart--normal S1 and S2. No murmurs, rubs or gallops. Lungs--clear bilaterally, no respiratory distress, no accessory muscle use. Abdomen--normal bowel sounds and soft. Nontender post pain medication administration. Nondistended, no hernias or masses, no organomegaly. Extremities--no cyanosis or clubbing. No edema. There are good distal pulses b/ l. Dermatologic--normal skin turgor, normal color, no abnormal lymph nodes, no rash. Neurologic--cranial nerves II through XII grossly intact. Rheumatologic--normal range of motion. Psychiatric--normal affect. Diagnostics Laboratory Results Results Past 24 Hours Test 06/02/18 19:35 06/02/18 19:42 06/02/18 22:32 Range/Units Urine Color YELLOW Urine Appearance CLOUDY CLEAR Urine pH 5.5 4.5-7.5 Urine Specific Marty 1.013 1.000-1.030 Urine Protein NEG NEG Urine Glucose (UA) NEG NEG Urine Ketones NEG NEG Urine Occult Blood 1+ NEG Urine Nitrite POS NEG Urine Bilirubin NEG NEG Urine Urobilinogen NEG NEG Urine Leukocyte Esterase LARGE NEG Urine WBC (Auto) >30 0-5 /hpf Urine RBC (Auto) 5-10 0-4 /hpf Urine Hyaline Casts (Auto) 0 0-5 /lpf Urine Epithelial Cells (Auto) 0-5 0-5 /lpf Urine Bacteria (Auto) 4+ NEG White Blood Count 6.27 4.8-10.8 K/uL Red Blood Count 2.95 4.7-6.1 M/uL Hemoglobin 9.3 14.0-18.0 g/dL Hematocrit 28.7 42-52 % Mean Corpuscular Volume 97.3 80-100 fL Mean Corpuscular Hemoglobin 31.5 25-34 pg Mean Corpuscular Hemoglobin Concent 32.4 32-36 g/dl Platelet Count 266 130-400 K/uL Mean Platelet Volume 9.4 7.4-10.4 fL Neutrophils (%) (Auto) 72.0 % Lymphocytes (%) (Auto) 13.2 % Monocytes (%) (Auto) 12.0 % Eosinophils (%) (Auto) 2.4 % Basophils (%) (Auto) 0.2 % Neutrophils # (Auto) 4.52 1.4-6.5 K/uL Lymphocytes # (Auto) 0.83 1.2-3.4 K/uL Monocytes # (Auto) 0.75 0.11-0.59 K/uL Eosinophils # (Auto) 0.15 0-0.5 K/uL Basophils # (Auto) 0.01 0-0.2 K/uL RDW Standard Deviation 50.2 36.4-46.3 fL RDW Coefficient of Variation 14.2 11.5-14.5 % Immature Granulocyte % (Auto) 0.2 % Immature Granulocyte # (Auto) 0.01 0.00-0.02 K/uL Sodium Level 138 136-145 mmol/L Potassium Level 3.9 3.5-5.1 mmol/L Chloride Level 105 98-107 mmol/L Carbon Dioxide Level 27 21-32 mmol/L Anion Gap 6.0 3-11 mmol/L Blood Urea Nitrogen 20 7-18 mg/dl Creatinine 1.17 0.60-1.40 mg/dl Est Creatinine Clear Calc Drug Dose 52.0 ml/min Estimated GFR () 67.8 Estimated GFR (Non- 58.5 BUN/Creatinine Ratio 16.7 10-20 Random Glucose 109 70-99 mg/dl Calcium Level 8.1 8.5-10.1 mg/dl Total Bilirubin 0.5 0.2-1 mg/dl Direct Bilirubin 0.2 0-0.2 mg/dl Aspartate Amino Transf (AST/SGOT) 21 15-37 U/L Alanine Aminotransferase (ALT/SGPT) 27 12-78 U/L Alkaline Phosphatase 98 45-117 U/L Total Protein 6.4 6.4-8.2 gm/dl Albumin 3.2 3.4-5.0 gm/dl Lipase 234 73-393 U/L Microbiology Results 06/02/18 Urine Culture, Received Pending Diagnostic Radiology Patient Name: LINH SPARROW Unit Number: [id number] Dictated: 06/02/182028 Transcribed: 06/02/182028 [facility] Printed Date/Time: [~ rep prt dt]/[~ rep prt tm] [~ rep ct labl] - [~ rep ct ivnm] [facility] [place] [address] Dictated: 06/02/182028 Transcribed: 06/02/182028 [facility] Printed Date/Time: [~ rep prt dt]/[~ rep prt tm] [~ rep ct labl] - [~ rep ct ivnm] [~ rep ct add3]] ABDOMEN AND PELVIS CT WITHOUT CONTRAST CT DOSE: 823.03 mGycm HISTORY: lower abdominal pain, recent colostomy reversal TECHNIQUE: Multiaxial CT images of the abdomen and pelvis were performed without contrast. A dose lowering technique was utilized adhering to the principles of ALARA. COMPARISON STUDY: Outside hospital abdomen and pelvis CT 02/20/2018. FINDINGS: Mild interstitial thickening seen within the bases of the lower lobes. Pacemaker wires are noted. The heart is mildly enlarged. There are poststernotomy changes. No suspicious lytic or blastic osseous lesions. Old, healed right-sided rib fractures. Advanced degenerative changes within the lumbar spine. Moderate body wall edema. 2 punctate foci of gas adjacent to the gallbladder on image 162. This is indeterminate but may be within an adjacent bowel loop. Focal area of increased density inferior to the right hepatic lobe on image 193. This is difficult to characterize due to the lack of contrast but could be due to multiple decompressed bowel loops within the small amount of surrounding complex fluid/hemorrhage. Bladder is mildly thickened. The prostate gland is enlarged. Small cystic focus posterior to the bladder wall has decreased in size. This currently measures 2 cm, previously measuring 4 cm. This may represent a resolving abscess. Anastomotic suture material at the distal sigmoid colon. Multiple colonic diverticula. Mild inflammatory change surrounding a diverticulum at this location which has improved consistent with a resolving diverticulitis. There is suboptimal evaluation for bowel pathology due to the lack of intravenous and oral contrast. Small amount of intermediate density fluid along the paracolic gutters. This could represent complex fluid or a small amount of hemorrhage. Status post reversal of the left-sided colostomy. There is anastomotic suture material at the distal transverse colon. There is mild thickening at the anastomosis in mild adjacent inflammatory change. Moderate well-formed stool seen within the colon. No dilated loops of small bowel to suggest an obstruction. The appendix is filled with gas. Therefore, no evidence for acute appendicitis. Trace perihepatic and perisplenic fluid. This appears to be hyperdense and may represent a small amount of hemorrhage. There appears to be a small amount of hemorrhage or complex fluid along the right paracolic gutter. This is similar to the prior study. The unenhanced liver, gallbladder, spleen, right kidney, and adrenal glands are unremarkable. The unenhanced pancreas appears within normal limits. No retroperitoneal lymphadenopathy. Left-sided nephrolithiasis. The dominant stone measures 4 mm. There is a 4.4 cm left renal cyst. There is mild fullness within the left renal pelvis without keila hydronephrosis. No ureteral calculi identified. A 5.2 x 1.9 cm focal density anterior to the lower pole the left kidney. This could represent a small amount of hemorrhage versus decompressed loop of bowel. IMPRESSION: 1. Small amount of intermediate density fluid within the perihepatic, perisplenic, and right greater the left paracolic gutters. This favors a small amount of hemorrhage. This is similar to the prior study. 2. Small fluid collection posterior to the bladder. This is decreased in size and favors a resolving abscess. 3. Status post reversal of the left-sided colostomy. There is mild thickening and adjacent fat stranding at the anastomotic suture site within the distal transverse colon. This favors the expected postoperative change. A mild diverticulitis/colitis could also have a similar appearance. 4. Mild diverticulitis within the distal sigmoid colon. This has significantly improved in the interval. 5. Moderate body wall edema. 6. Mild interstitial thickening within the bases of the lower lobes. This could represent atelectasis or a pneumonitis. 7. Mild form is within the left renal collecting system without keila hydronephrosis. There is a left-sided nephrolithiasis. No ureteral calculi. 8. No bowel obstruction. 9. Additional findings as described above. Electronically signed by: Costa Bernard M.D. 06/02/2018 8:49 PM Dictated Date/Time: 06/02/2018 8:29 PM The status of this report is Signed. Draft = Not yet reviewed or approved by Radiologist. Signed = Reviewed and approved by Radiologist. <AttendingPhy></AttendingPhy> <FamilyPhy>Ayden Mcmullen M.D.</FamilyPhy> < PrimaryPhy>Ayden Mcmullen M.D.</PrimaryPhy> <UnitNumber>[id number]</UnitNumber> <VisitNumber>[id number]</VisitNumber> <PatientName>ANDREWSLINH</PatientName > <DateOfBirth>1940</DateOfBirth> <Location>[facility]</Location> <ServiceDate> 06/02/18</ServiceDate> <MNE>MARIA ESTHER</MNE> <OrderingPhy>Sreekanth Toussaint MD</ OrderingPhy> <OrderingPhyMNE>f rep ord dr holland</OrderingPhyMNE> <DictatingPhyMNE> f rep dict dr holland</DictatingPhyMNE> <CCListMNE>f rep ct skyler</CCListMNE> < AdmittingPhyMNE>f pt admit dr holland</AdmittingPhyMNE> <AttendingPhyMNE>f pt attend dr holland</AttendingPhyMNE> <ConsultingPhyMNE>f pt consult dr holland</ConsultingPhyMNE> <FamilyPhyMNE>f pt fam dr holland</FamilyPhyMNE> <OtherPhyMNE>f pt other dr holland</OtherPhyMNE> < PrimaryPhyMNE>f pt prim care dr holland</PrimaryPhyMNE> <ReferringPhyMNE>f pt referring dr holland</ReferringPhyMNE> EKG LINH SPARROW ID:[id number] 02-JUN-2018 19:32:30 [facility] Ventricular-paced rhythm with frequent Premature ventricular complexes Abnormal ECG When compared with ECG of 19-NOV-2017 23:59, Electronic ventricular pacemaker has replaced Sinus rhythm 25mm/s 10mm/mV 150Hz 8.0 SP2 12SL 241 ERIC: 10 Referred by: Unconfirmed Vent. rate 68 BPM NH interval * ms QRS duration 158 ms QT/QTc 460/489 ms P-R-T axes * 105 10 1940 (78 yr) Male Room: Loc:15 Molecular Biology Director:Michelle Arndt ind: Impression Assessment and Plan Mild sigmoid diverticulitis/status post reversal of left-sided colostomy with adjacent fat stranding and anastomotic suture site-- The patient has been seen by surgery in the emergency department and refers to medicine for admission. Received ceftriaxone IV and Flagyl IV in the emergency department. Admit on Zosyn 3.375 mg IV every 8 hours. Patient reports that he had been on a low residue diet since the previous surgery, but when given seen was in the ED, had significant nausea. NPO. except essential medications. NSS + KCl 20 mEq 100 mils per hour. Zofran 4 mg IV every 6 hours as needed Compazine 10 mg IV every 6 hours as needed. Pantoprazole 40 mg IV daily. Acetaminophen 1 g IV every 8 hours as needed, Or 650 mg p.o. every 4 hours as needed mild pain or temperature. [place] 10/325 1 p.o. 4 times daily as needed moderate pain. Morphine sulfate 2-4 mg IV every 2 hours as needed severe pain Consult general surgery Dr. Oliveira. UTI-- Antibiotics as above. Follow urine culture and sensitivity. Atrial fibrillation with RVR/hypertension/cardiac pacemaker/mitral valve prosthesis/tricuspid valve repair-- Continue aspirin 81 mg every morning, and metoprolol tartrate 75 mg p.o. twice daily with hold parameters. Hold furosemide 20 mg p.o. twice daily, potassium chloride 10 mEq p.o. twice daily and lisinopril 5 mg p.o. daily. Continue warfarin at current dosing. Serial PT/INR. Hyperlipidemia-- Hold simvastatin while primarily n.p.o. BPH-- Flomax 0.4 mg p.o. at bedtime. Advanced Directives Existing Advance Directive: No Existing Living Will: No Existing Power of Frame Coverer: No Resuscitation Status VTE Prophylaxis Will order VTE Prophylaxis: Yes
[2018-06-02 22:53] LABS: INR 3.1 (0.9-1.1)
--- NOTE | 2018-06-02 23:00 | EMERGENCY ROOM VISIT NOTE ---
History Report prepared by Felipe: Judith Leigh Under the Supervision of: Dr. Sreekanth Toussaint M.D. First contact with patient: 19:18 Chief Complaint: ABDOMINAL PAIN Stated Complaint: BELLY ACHE History of Present Illness The patient is a 78 year old male who presents to the Emergency Room with complaints of abdominal pain beginning yesterday morning. When his pain began he rates it as an 8/10 in severity, but states it is now a 3/10. He currently takes hydrocodone but did not take any extra for his pain. The patient describes his pain as an ache. He has not had a bowel movement since yesterday morning but notes he has never experienced an episode like this. He states he had a reverse colostomy due to a colovesical fistula a few weeks river [employer]. Pt denies LOC, headache, fevers, chills, diaphoresis, visual changes, neck pain, chest pain, breathing difficulties, nausea, vomiting, back pain, melena, hematochezia , urinary symptoms, numbness, weakness, lymphadenopathy, rash, or other complaints. Source of History: patient Onset: yesterday morning Position: abdomen Symptom Intensity: When his pain began he rates it as an 8/10 in severity, but states it is now a 3/10 Quality: ache Note: Positive constipation Review of Systems See HPI for pertinent positives and negatives. A total of ten systems were reviewed and were otherwise negative. Past Medical & Surgical Medical Problems: (1) Atrial fibrillation (2) Benign hypertension (3) Colovesical fistula (4) Diverticulosis of colon without diverticulitis (5) Implantation of cardiac pacemaker (6) Implantation of mitral valve prosthesis or synthetic device (7) Repair of tricuspid valve (8) UTI (urinary tract infection) Family History No pertinent family history Social History Smoking Status: Former Smoker Drug Use: none Occupation Status: retired Current/Historical Medications Scheduled Aspirin (Aspir-Low), 1 TAB PO QAM Carbonyl Iron (Feosol), 65 MG PO HS Furosemide (Lasix), 20 MG PO BID Lisinopril (Zestril), 5 MG PO DAILY Metoprolol Tartrate (Lopressor) (Lopressor), 75 MG PO BID Montelukast Sodium (Montelukast Sodium), 10 MG PO DAILY Multivitamins/Minerals (Mvi With Minerals), 1 TAB PO DAILY Potassium Chloride (Micro-K Ext Rel), 10 MEQ PO BID Simvastatin (Zocor), 80 MG PO QPM Tamsulosin Hcl (Flomax), 1 CAP PO DAILY Warfarin Sod (Coumadin), 2.5 MG PO 5XWK Warfarin Sodium (Warfarin Sodium), 5 MG PO 2XWK Scheduled PRN Acetaminophen (Tylenol), 1,000 MG PO Q6H PRN for Pain Hydrocodone/Acetaminophen 10MG/325MG ([place] 10MG/325MG), 1 TAB PO QID PRN for Pain Allergies Coded Allergies: No Known Allergies (Unverified , 06/02/18) Physical Exam Vital Signs Date Time Temp Pulse Resp B/P (MAP) Pulse Ox O2 Delivery O2 Flow Rate FiO2 06/02/18 21:38 79 24 121/71 96 Room Air 06/02/18 20:01 76 20 129/69 96 Room Air 06/02/18 19:53 71 06/02/18 19:16 36.7 86 16 142/65 95 Room Air Physical Exam GENERAL: Awake, alert, well-appearing, in no distress HENT: Normocephalic, atraumatic. Oropharynx unremarkable. EYES: Normal conjunctiva. Sclera non-icteric. NECK: Supple. No nuchal rigidity. FROM. No masses. RESPIRATORY: Clear to auscultation. No wheezes. No rales. Normal respiratory effort. CARDIAC: Normal rate. Normal rhythm. No murmurs. No rubs. Extremities warm and well perfused. Pulses equal. No JVD. GI: Soft, non-distended. LQ tenderness. No rebound or guarding. No masses. Surgical wound is healing on the lower abdomen. RECTAL: Deferred. MUSCULOSKELETAL: Atraumatic. Chest examination reveals no tenderness. The back is symmetrical on inspection without obvious abnormality. There is no CVA tenderness to palpation. No joint edema. LOWER EXTREMITIES: Calves are equal size bilaterally and non-tender. No edema. No discoloration. NEURO: Normal sensorium. No sensory or motor deficits noted. SKIN: No rash or jaundice noted. Medical Decision & Procedures ER Provider Diagnostic Interpretation: Radiology results as stated below per my review and radiologist interpretation: ABDOMEN AND PELVIS CT WITHOUT CONTRAST CT DOSE: 823.03 mGycm HISTORY: lower abdominal pain, recent colostomy reversal TECHNIQUE: Multiaxial CT images of the abdomen and pelvis were performed without contrast. A dose lowering technique was utilized adhering to the principles of ALARA. COMPARISON STUDY: Outside hospital abdomen and pelvis CT 02/20/2018. FINDINGS: Mild interstitial thickening seen within the bases of the lower lobes. Pacemaker wires are noted. The heart is mildly enlarged. There are poststernotomy changes. No suspicious lytic or blastic osseous lesions. Old, healed right-sided rib fractures. Advanced degenerative changes within the lumbar spine. Moderate body wall edema. 2 punctate foci of gas adjacent to the gallbladder on image 162. This is indeterminate but may be within an adjacent bowel loop. Focal area of increased density inferior to the right hepatic lobe on image 193. This is difficult to characterize due to the lack of contrast but could be due to multiple decompressed bowel loops within the small amount of surrounding complex fluid/hemorrhage. Bladder is mildly thickened. The prostate gland is enlarged. Small cystic focus posterior to the bladder wall has decreased in size. This currently measures 2 cm, previously measuring 4 cm. This may represent a resolving abscess. Anastomotic suture material at the distal sigmoid colon. Multiple colonic diverticula. Mild inflammatory change surrounding a diverticulum at this location which has improved consistent with a resolving diverticulitis. There is suboptimal evaluation for bowel pathology due to the lack of intravenous and oral contrast. Small amount of intermediate density fluid along the paracolic gutters. This could represent complex fluid or a small amount of hemorrhage. Status post reversal of the left-sided colostomy. There is anastomotic suture material at the distal transverse colon. There is mild thickening at the anastomosis in mild adjacent inflammatory change. Moderate well-formed stool seen within the colon. No dilated loops of small bowel to suggest an obstruction. The appendix is filled with gas. Therefore, no evidence for acute appendicitis. Trace perihepatic and perisplenic fluid. This appears to be hyperdense and may represent a small amount of hemorrhage. There appears to be a small amount of hemorrhage or complex fluid along the right paracolic gutter. This is similar to the prior study. The unenhanced liver, gallbladder, spleen, right kidney, and adrenal glands are unremarkable. The unenhanced pancreas appears within normal limits. No retroperitoneal lymphadenopathy. Left-sided nephrolithiasis. The dominant stone measures 4 mm. There is a 4.4 cm left renal cyst. There is mild fullness within the left renal pelvis without keila hydronephrosis. No ureteral calculi identified. A 5.2 x 1.9 cm focal density anterior to the lower pole the left kidney. This could represent a small amount of hemorrhage versus decompressed loop of bowel. IMPRESSION: 1. Small amount of intermediate density fluid within the perihepatic, perisplenic, and right greater the left paracolic gutters. This favors a small amount of hemorrhage. This is similar to the prior study. 2. Small fluid collection posterior to the bladder. This is decreased in size and favors a resolving abscess. 3. Status post reversal of the left-sided colostomy. There is mild thickening and adjacent fat stranding at the anastomotic suture site within the distal transverse colon. This favors the expected postoperative change. A mild diverticulitis/colitis could also have a similar appearance. 4. Mild diverticulitis within the distal sigmoid colon. This has significantly improved in the interval. 5. Moderate body wall edema. 6. Mild interstitial thickening within the bases of the lower lobes. This could represent atelectasis or a pneumonitis. 7. Mild form is within the left renal collecting system without keila hydronephrosis. There is a left-sided nephrolithiasis. No ureteral calculi. 8. No bowel obstruction. 9. Additional findings as described above. Electronically signed by: Costa Bernard M.D. 06/02/2018 8:49 PM Laboratory Results 06/02/18 19:42 Red Blood Count 2.95, Mean Corpuscular Volume 97.3, Mean Corpuscular Hemoglobin 31.5, Mean Corpuscular Hemoglobin Concent 32.4, Mean Platelet Volume 9.4, Neutrophils (%) (Auto) 72.0, Lymphocytes (%) (Auto) 13.2, Monocytes (%) (Auto) 12.0, Eosinophils (%) (Auto) 2.4, Basophils (%) (Auto) 0.2, Neutrophils # (Auto ) 4.52, Lymphocytes # (Auto) 0.83, Monocytes # (Auto) 0.75, Eosinophils # (Auto ) 0.15, Basophils # (Auto) 0.01 06/02/18 19:42 Test 06/02/18 19:35 06/02/18 19:42 06/02/18 20:04 06/02/18 22:46 Urine Color YELLOW Urine Appearance CLOUDY (CLEAR) Urine pH 5.5 (4.5-7.5) Urine Specific [place] 1.013 (1.000-1.030) Urine Protein NEG (NEG) Urine Glucose (UA) NEG (NEG) Urine Ketones NEG (NEG) Urine Occult Blood 1+ (NEG) Urine Nitrite POS (NEG) Urine Bilirubin NEG (NEG) Urine Urobilinogen NEG (NEG) Urine Leukocyte Esterase LARGE (NEG) Urine WBC (Auto) >30 /hpf (0-5) Urine RBC (Auto) 5-10 /hpf (0-4) Urine Hyaline Casts (Auto) 0 /lpf (0-5) Urine Epithelial Cells (Auto) 0-5 /lpf (0-5) Urine Bacteria (Auto) 4+ (NEG) White Blood Count 6.27 K/uL (4.8-10.8) Red Blood Count 2.95 M/uL (4.7-6.1) Hemoglobin 9.3 g/dL (14.0-18.0) Hematocrit 28.7 % (42-52) Mean Corpuscular Volume 97.3 fL (80-100) Mean Corpuscular Hemoglobin 31.5 pg (25-34) Mean Corpuscular Hemoglobin Concent 32.4 g/dl (32-36) Platelet Count 266 K/uL (130-400) Mean Platelet Volume 9.4 fL (7.4-10.4) Neutrophils (%) (Auto) 72.0 % Lymphocytes (%) (Auto) 13.2 % Monocytes (%) (Auto) 12.0 % Eosinophils (%) (Auto) 2.4 % Basophils (%) (Auto) 0.2 % Neutrophils # (Auto) 4.52 K/uL (1.4-6.5) Lymphocytes # (Auto) 0.83 K/uL (1.2-3.4) Monocytes # (Auto) 0.75 K/uL (0.11-0.59) Eosinophils # (Auto) 0.15 K/uL (0-0.5) Basophils # (Auto) 0.01 K/uL (0-0.2) RDW Standard Deviation 50.2 fL (36.4-46.3) RDW Coefficient of Variation 14.2 % (11.5-14.5) Immature Granulocyte % (Auto) 0.2 % Immature Granulocyte # (Auto) 0.01 K/uL (0.00-0.02) Anion Gap 6.0 mmol/L (3-11) Est Creatinine Clear Calc Drug Dose 52.0 ml/min Estimated GFR () 67.8 Estimated GFR (Non- 58.5 BUN/Creatinine Ratio 16.7 (10-20) Calcium Level 8.1 mg/dl (8.5-10.1) Total Bilirubin 0.5 mg/dl (0.2-1) Direct Bilirubin 0.2 mg/dl (0-0.2) Aspartate Amino Transf (AST/SGOT) 21 U/L (15-37) Alanine Aminotransferase (ALT/SGPT) 27 U/L (12-78) Alkaline Phosphatase 98 U/L (45-117) Total Protein 6.4 gm/dl (6.4-8.2) Albumin 3.2 gm/dl (3.4-5.0) Lipase 234 U/L (73-393) Prothrombin Time 32.0 SECONDS (9.0-12.0) Prothromb Time International Ratio 3.1 (0.9-1.1) Laboratory results reviewed by me Medications Administered Medications (Trade) Dose Ordered Sig/Quan Route Start Time Stop Time Status Last Admin Dose Admin Ceftriaxone Sodium (Rocephin Inj) 1 gm NOW STAT IV 06/02/18 20:37 06/02/18 20:38 DC 06/02/18 20:47 1 GM Metronidazole (Flagyl / Nss) 500 mg NOW STAT IV 06/02/18 21:14 06/02/18 21:15 DC 06/02/18 21:35 500 MG Acetaminophen/ Hydrocodone Bitart ([place] 10/325 Tab) 1 tab QID PRN PO 06/02/18 22:15 06/16/18 22:14 06/02/18 22:24 1 TAB ECG Per My Interpretation Indication: abdominal pain Rate (beats per minute): 68 Rhythm: other (paced rhythm) Findings: PVC, other (no ST elevation or depression) ED Course 1930: The patient was evaluated in room B9. A complete history and physical exam was performed. 2036: Ordered Rocephin Inj 1 gm IV 2102: Discussed the patient's case with Joel Calzada PA-C on behalf of staff surgeon Dr. Rose [facility]. The patient will be evaluated for further treatment. 2113: Ordered Flagyl/Nss 500 mg IV 2124: Discussed the patient's case with Dr. Steve Multani [facility] Hospitalist. The patient will be evaluated for further treatment and disposition. 2139: Joel Calzada PA-C is here to evaluate the patient. Medical Decision Prior records/ancillary studies reviewed. Triage Nursing notes reviewed and agree them. The patient's history was concerning for abdominal pain. Differential diagnosis: Etiologies such as complication from recent surgery, diverticulitis, PUD, biliary pathology, UTI, pancreatitis, obstruction, mesenteric ischemia, aortic pathology, infections, inflammatory bowel disease, renal colic, as well as others were entertained. Physical examination findings: As above. ER treatment provided: IV Rocephin IV Flagyl On reassessment the patient felt better. Diagnostics interpreted by me: ECG: No acute ischemia The labs revealed an unremarkable CBC and chemistry panel except for mild anemia which is stable. UTI on urinalysis. Imaging studies: CT scan as above It appears patient has UTI and some mild diverticulitis. There is no evidence of obstruction or perforation. He does have some free fluid in the abdomen. Consultation with surgery and internal medicine will be necessary. Consultation: A consultation was placed with general surgery and internal medicine the case was discussed and diagnostics were reviewed. The patient was evaluated in the ER for further treatment. Medication Reconcilliation Current Medication List: was personally reviewed by me Blood Pressure Screening Patient's blood pressure: Elevated blood pressure Blood pressure disposition: Referred to PCP Consults Time Called: 2058 Consulting Physician: Joel Calzada PA-C Returned Call: 2102 Discussed the patient's case with Joel Calzada PA-C on behalf of staff surgeon Dr. Rose [facility]. The patient will be evaluated for further treatment and disposition. Additional Consults: Time Called: 2116 Consulted Physician: Dr. Steve Multani [facility] Hospitalist Returned Call: 2124 Additional Comments: Discussed the patient's case with Dr. Steve Multani [facility] Hospitalist. The patient will be evaluated for further treatment and disposition. Impression Primary Impression: Lower abdominal pain Additional Impression: UTI (urinary tract infection) Scribe Attestation The scribe's documentation has been prepared under my direction and personally reviewed by me in its entirety. I confirm that the note above accurately reflects all work, treatment, procedures, and medical decision making performed by me. Departure Information Dispostion Being Evaluated By Hospitalist (Dr. Steve Multani, [facility] Hospitalist) Referrals Ayden Mcmullen M.D. (PCP) Patient Instructions My [facility] Problem Qualifiers
[2018-06-02 23:06] LABS: PTT PATIENT 44.1 SECONDS (21.0-31.0)
[2018-06-02] MEDS ORDERED: ACETAMINOPHEN IV 100 ML IV PRN (23:30)
[2018-06-02] MEDS ORDERED: ONDANSETRON INJ 2 MG/ML 2 ML VIAL IV PRN (23:30)
[2018-06-02] MEDS ORDERED: PIPERACILL/TAZOBAC CONSULT ACTIVE PRN (23:30)
[2018-06-02] MEDS ORDERED: ACETAMINOPHEN 325 MG TAB PO PRN (23:30)
[2018-06-02] MEDS ORDERED: HEPARIN SOD 5000 UNIT/0.5 ML CARP SQ SCH (23:30)
[2018-06-02] MEDS ORDERED: PROCHLORPERAZINE INJ 10 MG in SYRINGE 8 ML IV PRN (23:45)
[2018-06-02] MEDS ORDERED: MoRPHine SULFATE 4 MG/ML 1 ML CARP\\VIAL IV PRN (23:45)
[2018-06-02] MEDS ORDERED: MoRPHine SULFATE 2 MG/ML CARP IV PRN (23:45)
[2018-06-02 23:55] VITALS: BP 154/69; PULSE 70; TEMP 36.7; O2SAT 97; Ht 177.8 cm; Wt 75.5 kg
[2018-06-03] MEDS ORDERED: NSS + 20MEQ KCL 1000ML 1,000 ML IV SCH (01:00)
[2018-06-03] MEDS ORDERED: PIPERACILL/TAZOBAC IV 3.375 GM in D5W 100 ML IV ONE (01:00)
[2018-06-03 05:57] LABS: BASO % 0.4 %; BASO ABS # 0.02 K/uL (0-0.2); EOS % 3.1 %; EOS ABS # 0.16 K/uL (0-0.5); HEMATOCRIT 26.9 % (42-52); IG# 0.01 K/uL (0.00-0.02); LYMPH % 19.3 %; MEAN CELL VOLUME 97.1 fL (80-100); MEAN CORPUSCULAR HEMOGLOBIN 32.5 pg (25-34); MEAN CORPUSCULAR HGB CONC 33.5 g/dl (32-36); MEAN PLATELET VOLUME 9.5 fL (7.4-10.4); MONO % 11.4 %; MONO ABS # 0.59 K/uL (0.11-0.59); NEUT % 65.6 %; NEUT ABS # 3.41 K/uL (1.4-6.5); PLATELET COUNT 258 K/uL (130-400); RED CELL DISTRIBUTION WIDTH CV 14.2 % (11.5-14.5); RED CELL DISTRIBUTION WIDTH SD 49.9 fL (36.4-46.3); WHITE BLOOD COUNT 5.19 K/uL (4.8-10.8)
[2018-06-03] MEDS ORDERED: PIPERACILL/TAZOBAC IV 3.375 GM in DEXTROSE 5% 100ML 100 ML IV SCH (06:00)
[2018-06-03 06:06] LABS: INR 2.9 (0.9-1.1); PTT PATIENT 43.7 SECONDS (21.0-31.0)
--- NOTE | 2018-06-03 06:17 | SURGERY PROGRESS NOTE ---
DATE: 06/03/2018 Jorge is resting comfortably. He is having no abdominal discomfort, not nauseated. He is passing flatus. He has not had a bowel movement. The abdomen was benign. He does have one single incision around the umbilicus and that is the only incision that I see in the abdomen. Apparently, this where the colostomy was and it was reversed through that area. The incision itself has some granulation tissue and has one suture in that area that is coming out. We will remove that. At this point, we could start him on clear liquids and see how he does. He has an appointment to be followed up at [place] in near future.
[2018-06-03] MEDS: HYDROCODONE/ACETAMI 10/325 TAB PO PRN ×2 (06:24→11:30)
[2018-06-03 06:28] LABS: CREATININE 1.01 mg/dl (0.60-1.40); POTASSIUM 3.9 mmol/L (3.5-5.1)
[2018-06-03 07:16] VITALS: BP 148/70; PULSE 65; TEMP 37; O2SAT 94
--- NOTE | 2018-06-03 08:43 | Progress Note ---
Subjective Date of Service: Jun 03, 2018. Problem List Medical Problems: (1) Lower abdominal pain Status: Acute Objective Vital Signs Date Time Temp Pulse Resp B/P (MAP) Pulse Ox O2 Delivery O2 Flow Rate FiO2 06/03/18 07:16 37.0 65 16 148/70 (96) 94 Room Air 06/02/18 23:55 36.7 70 18 154/69 97 Room Air 06/02/18 23:49 80 14 133/51 96 06/02/18 23:21 80 14 133/51 96 Room Air 06/02/18 21:38 79 24 121/71 96 Room Air 06/02/18 20:01 76 20 129/69 96 Room Air 06/02/18 19:53 71 06/02/18 19:16 36.7 86 16 142/65 95 Room Air Laboratory Results Last 24 Hours Test 06/02/18 19:35 06/02/18 19:42 06/02/18 20:04 06/02/18 22:34 Urine Color YELLOW Urine Appearance CLOUDY Urine pH 5.5 Urine Specific [place] 1.013 Urine Protein NEG Urine Glucose (UA) NEG Urine Ketones NEG Urine Occult Blood 1+ Urine Nitrite POS Urine Bilirubin NEG Urine Urobilinogen NEG Urine Leukocyte Esterase LARGE Urine WBC (Auto) >30 /hpf Urine RBC (Auto) 5-10 /hpf Urine Hyaline Casts (Auto) 0 /lpf Urine Epithelial Cells (Auto) 0-5 /lpf Urine Bacteria (Auto) 4+ White Blood Count 6.27 K/uL Red Blood Count 2.95 M/uL Hemoglobin 9.3 g/dL Hematocrit 28.7 % Mean Corpuscular Volume 97.3 fL Mean Corpuscular Hemoglobin 31.5 pg Mean Corpuscular Hemoglobin Concent 32.4 g/dl Platelet Count 266 K/uL Mean Platelet Volume 9.4 fL Neutrophils (%) (Auto) 72.0 % Lymphocytes (%) (Auto) 13.2 % Monocytes (%) (Auto) 12.0 % Eosinophils (%) (Auto) 2.4 % Basophils (%) (Auto) 0.2 % Neutrophils # (Auto) 4.52 K/uL Lymphocytes # (Auto) 0.83 K/uL Monocytes # (Auto) 0.75 K/uL Eosinophils # (Auto) 0.15 K/uL Basophils # (Auto) 0.01 K/uL RDW Standard Deviation 50.2 fL RDW Coefficient of Variation 14.2 % Immature Granulocyte % (Auto) 0.2 % Immature Granulocyte # (Auto) 0.01 K/uL Sodium Level 138 mmol/L Potassium Level 3.9 mmol/L Chloride Level 105 mmol/L Carbon Dioxide Level 27 mmol/L Anion Gap 6.0 mmol/L Blood Urea Nitrogen 20 mg/dl Creatinine 1.17 mg/dl Est Creatinine Clear Calc Drug Dose 52.0 ml/min Estimated GFR () 67.8 Estimated GFR (Non- 58.5 BUN/Creatinine Ratio 16.7 Random Glucose 109 mg/dl Calcium Level 8.1 mg/dl Total Bilirubin 0.5 mg/dl Direct Bilirubin 0.2 mg/dl Aspartate Amino Transf (AST/SGOT) 21 U/L Alanine Aminotransferase (ALT/SGPT) 27 U/L Alkaline Phosphatase 98 U/L Total Protein 6.4 gm/dl Albumin 3.2 gm/dl Lipase 234 U/L Prothrombin Time 32.0 SECONDS Prothromb Time International Ratio 3.1 Activated Partial Thromboplast Time 44.1 SECONDS Partial Thromboplastin Ratio 1.7 Test 06/03/18 05:17 White Blood Count 5.19 K/uL Red Blood Count 2.77 M/uL Hemoglobin 9.0 g/dL Hematocrit 26.9 % Mean Corpuscular Volume 97.1 fL Mean Corpuscular Hemoglobin 32.5 pg Mean Corpuscular Hemoglobin Concent 33.5 g/dl Platelet Count 258 K/uL Mean Platelet Volume 9.5 fL Neutrophils (%) (Auto) 65.6 % Lymphocytes (%) (Auto) 19.3 % Monocytes (%) (Auto) 11.4 % Eosinophils (%) (Auto) 3.1 % Basophils (%) (Auto) 0.4 % Neutrophils # (Auto) 3.41 K/uL Lymphocytes # (Auto) 1.00 K/uL Monocytes # (Auto) 0.59 K/uL Eosinophils # (Auto) 0.16 K/uL Basophils # (Auto) 0.02 K/uL RDW Standard Deviation 49.9 fL RDW Coefficient of Variation 14.2 % Immature Granulocyte % (Auto) 0.2 % Immature Granulocyte # (Auto) 0.01 K/uL Prothrombin Time 30.3 SECONDS Prothromb Time International Ratio 2.9 Activated Partial Thromboplast Time 43.7 SECONDS Partial Thromboplastin Ratio 1.7 Sodium Level 139 mmol/L Potassium Level 3.9 mmol/L Chloride Level 105 mmol/L Carbon Dioxide Level 27 mmol/L Anion Gap 7.0 mmol/L Blood Urea Nitrogen 16 mg/dl Creatinine 1.01 mg/dl Est Creatinine Clear Calc Drug Dose 60.2 ml/min Estimated GFR () 81.0 Estimated GFR (Non- 69.9 BUN/Creatinine Ratio 15.9 Random Glucose 100 mg/dl Calcium Level 8.0 mg/dl Magnesium Level 2.3 mg/dl Assessment and Plan 78 M with recent reversal of colostomy that was 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 NSS + KCl 20 mEq 100 mils per hour. General surgery has seen 06/03 and recommends advancing diet Pantoprazole 40 mg IV daily. UTI--poa, pending urine culture and sensitivity. Atrial fibrillation with RVR/hypertension/cardiac pacemaker/mitral valve prosthesis/tricuspid valve repair-- Continue aspirin 81 mg every morning, and metoprolol tartrate 75 mg p.o. twice daily . Hold furosemide 20 mg p.o. twice daily, potassium chloride 10 mEq p.o. twice daily and lisinopril 5 mg p.o. daily. Continue warfarin follow PT/INR. Hyperlipidemia--Hold simvastatin BPH--Flomax 0.4 mg p.o. at bedtime. DVT prevention is warfarin
[2018-06-03] MEDS ORDERED: ASPIRIN 81 MG ECTAB PO SCH (09:00)
[2018-06-03] MEDS ORDERED: METOPROLOL TARTRATE 25 MG TAB PO SCH (09:00)
[2018-06-03] MEDS ORDERED: MONTELUKAST SOD 10 MG TAB PO SCH (09:00)
[2018-06-03] MEDS ORDERED: AMOX875T PO (10:37)
--- NOTE | 2018-06-03 10:37 | Discharge Instructions ---
Discharge Instructions Date of Service Jun 03, 2018. Admission Reason for Admission: Colovesical Fistula,Uti Discharge Discharge Diagnosis / Problem: diverticulitis, urinary infection on admission Discharge Goals Goal(s): Diagnostic testing, Therapeutic intervention Activity Recommendations Activity Limitations: as noted below Lifting Limitations: gradually increase as tolerated consider using a probiotic plenty of liquids to keep good urine flow continue to check your blood thinner coumadin please have it checked the first week of june follow up with Dr Mcmullen . Current Hospital Diet Patient's current hospital diet: Full Liquid Diet Discharge Diet Recommended Diet: Low Fiber Diet Pending Studies Studies pending at discharge: no Medical Emergencies . Who to Call and When: Medical Emergencies: If at any time you feel your situation is an emergency, please call 911 immediately. . Non-Emergent Contact Non-Emergency issues call your: Primary Care Provider Call Non-Emergent contact if: temperature is above 101, your pain is not controlled . . "Provider Documentation" section prepared by Bassam Morales. .
[2018-06-03 10:48] VITALS: BP 148/70; PULSE 65; TEMP 37; O2SAT 94
[2018-06-03] MEDS ORDERED: PANTOprazole INJ 40 MG in SYRINGE 0 ML IV SCH (11:00)
[2018-06-03 11:11] VITALS: BP 154/70; PULSE 56; TEMP 36.6; O2SAT 96
[2018-06-03] MEDS ORDERED: WARFARIN SOD 2.5 MG TAB PO SCH (16:00)
--- NOTE | 2018-06-03 16:42 | Discharge Summary ---
Discharge Summary Date of Service Jun 03, 2018. Discharge Summary Admission Date: Jun 02, 2018 at 22:44 Discharge Date: Jun 03, 2018 Discharge Disposition: Home Principal Diagnosis: diverticulitis resolving Immunizations: Have You Had Influenza Vaccine: Yes Influenza Vaccine Date: Oct 04, 2012 History of Tetanus Vaccine?: Yes History of Pneumococcal: Yes Pneumococcal Date: Feb 03, 2013 History of Hepatitis B Vaccine: No Medication Reconciliation New Medications: Amoxicillin & Pot Clavulanate (Augmentin 875-125 mg) 1 Tab Tab 875 MG PO BID, #18 TAB Continued Medications: Acetaminophen (Tylenol) 500 Mg Tab 1000 MG PO Q6H PRN for Pain, TAB Aspirin (Aspir-Low) 81 Mg Tab 1 TAB PO QAM Carbonyl Iron (Feosol) 45 Mg Tab 65 MG PO HS Furosemide (Lasix) 20 Mg Tab 20 MG PO BID, TAB Hydrocodone/Acetaminophen 10MG/325MG ([place] 10MG/325MG) Tab 1 TAB PO QID PRN for Pain, TAB PRN PAIN Lisinopril (Zestril) 5 Mg Tab 5 MG PO DAILY, TAB Metoprolol Tartrate (Lopressor) (Lopressor) 50 Mg Tab 75 MG PO BID, TAB Montelukast Sodium (Montelukast Sodium) 10 Mg Tab 10 MG PO DAILY for 30 Days, #30 TAB 5 Refills Multivitamins/Minerals (Mvi With Minerals) Tab 1 TAB PO DAILY, TAB Potassium Chloride (Micro-K Ext Rel) 10 Meq Capcr 10 MEQ PO BID, CAP Simvastatin (Zocor) 80 Mg Tab 80 MG PO QPM, TAB Tamsulosin Hcl (Flomax) 0.4 Mg Cap 1 CAP PO DAILY for 30 Days, #30 CAP 5 Refills Warfarin Sod (Coumadin) 2.5 Mg Tab 2.5 MG PO 5XWK, TAB EVERY DAY EXCEPT THURSDAY AND THURSDAY Warfarin Sodium (Warfarin Sodium) 5 Mg Tab 5 MG PO 2XWK ON MONDAYS AND FRIDAYS Discharge Exam Review of Systems: Constitutional: No fever, No chills, No sweats, No weakness Respiratory: No cough, No sputum, No shortness of breath, No dyspnea on exertion Abdomen: No pain, No nausea, No vomiting, No diarrhea Musculoskeletal: No joint pain, No muscle pain Psychiatric: No depression symptoms, No anhedonism, No anxiety Physical Exam: General Appearance: WD/WN, no apparent distress Eyes: normal inspection, sclerae normal Neck: supple, no JVD Respiratory/Chest: chest non-tender, lungs clear, normal breath sounds Cardiovascular: regular rate, rhythm, no murmur Abdomen / GI: normal bowel sounds, non tender, soft Neurologic/Psychiatric: alert, oriented x 3 Hospital Course 78 M with recent reversal of colostomy that was 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 will transition to augmentin did tolerate advancig diet and surgery has no plans on intervention UTI--poa, pending urine culture and sensitivity at time of discharge Atrial fibrillation with RVR/hypertension/cardiac pacemaker/mitral valve prosthesis/tricuspid valve repair-- Continue aspirin 81 mg every morning, and metoprolol tartrate 75 mg p.o. twice daily . furosemide 20 mg p.o. twice daily, potassium chloride 10 mEq p.o. twice daily and lisinopril 5 mg p.o. daily. Continue warfarin follow ususal outpt routine for inr Hyperlipidemia--Hold simvastatin BPH--Flomax 0.4 mg p.o. at bedtime. DVT prevention is warfarin Total Time Spent: Greater than 30 minutes This includes examination of the patient, discharge planning, medication reconciliation, and communication with other providers. Discharge Instructions Please refer to the electronic Patient Visit Report (Discharge Instructions) for additional information.
[2018-06-03] MEDS ORDERED: TAMSULOSIN HCL 0.4 MG CAP PO SCH (21:00)
[2018-06-03] MEDS ORDERED: SIMVASTATIN 80 MG TAB PO SCH (21:00)
[2018-06-04] MEDS ORDERED: WARFARIN SOD 5 MG TAB PO SCH (16:00)
== END 2018-06-03 12:43 | disposition home health service (06) | DRG 392 ==
LOC: C.EDB 19:14 → C.MED 22:44 → ENRESERV 23:04
PROVIDERS: ADMIT Hospitalist; ATTEND Hospitalist
DX: K57.32 Diverticulitis of large intestine without perforation or abscess without bleeding (principal); N39.0 Urinary tract infection, site not specified; I48.91 Unspecified atrial fibrillation; E78.5 Hyperlipidemia, unspecified; N40.0 Benign prostatic hyperplasia without lower urinary tract symptoms; I10 Essential (primary) hypertension; Z79.01 Long term (current) use of anticoagulants; Z79.82 Long term (current) use of aspirin; Z79.899 Other long term (current) drug therapy; Z87.891 Personal history of nicotine dependence